=== PATIENT | female | born 1960 | race African-American/Black ===

== ENCOUNTER 2016-09-03 09:04 | Emergency (ER) | payer OTHER ==
[~2016-09-03] VITALS: Ht 154.9 cm; Wt 80.0 kg
[~2016-09-03 09:04] MED LIST: ACETTAB3 OR; AMOXICILLIN500 MG PO; AMOXICILLIN875 MG OR; ATIVAN0.5 MG OR; AUGMENTIN875 MG OR; AVELOX400 MG OR; BACTRIM DS1 TAB PO; BENADRYL 50MG C50 MG OR; BENADRYL1 CRE EX; CARVEDILOL3.125 MG PO; CEPHALEXIN500 M1 OR; CLONIDINE0.1 MG OR; COREG3.125 MG PO; DEXAMETHASON2 MG PO; DYAZIDE1 CAP OR; ENALAPR/HCTZ1 TAB PO; ENALAPRIL10 MG OR; ENALAPRIL10 MG PO; ENALAPRIL5 MG PO; FIORICET OR; FIORICET PO; HYDRALAZINE25 MG OR; K-DUR/KLOR-CON10 MEQ PO; KEFLEX500 MG PO; LASIX 40 MG TAB40 MG PO; LASIX 40 MG40 MG/TAB PO; LASIX40 MG PO; LEVAQUIN750 MG PO; LISINOPRIL20 MG PO; LISINOPRIL40 MG PO; LOPRESSOR50 MG OR; LORTAB 5 OR; LORTAB 5/3255 MG PO; LORTAB 7.5 OR; LORTAB5 PO; MAXZIDE-2537.5 MG/TA PO; MEDDOSEPAK OR; METOPROLOL50 MG OR; MICRO-K10 ME1 PO; MOTRIN IB200 MG OR; NAPROSYN500 MG OR; NO; PENICILLN VK500 MG OR; PENICILLN VK500 MG PO; PEPCID20 MG OR; PERCOCET 5/325M1 TAB OR; PERCOCET 5/325M1 TAB PO; POT CHLORIDE20 ME3 PO; PREDNISONE10 MG OR; PREDNISONE10 MG PO; PREDNISONE20 MG OR; PREDNISONE20 MG PO; PREDNISONE5 MG OR; PREMARIN0.625 MG OR; PROCRIT IM; PROZAC10 M1 OR; ROBITUSSIN AC10 ML OR; ROBITUSSIN AC10 ML PO; SEPTRA DS1 TAB OR; TRAMADOL HCL50 MG OR; TRIAM/HCTZ1 CAP PO; TRIAMT/HCTZ1 TAB PO; TYLENOL325 MG OR; ULTRAM50 MG OR; ZITHROMAX250 MG PO; [UNRECOGNIZED DRUG - OTHER]; [UNRECOGNIZED DRUG - OTHER] PO
[2016-09-03 10:50] LABS: HEMATOCRIT 35.3 % (37.0-47.0); MEAN CELL VOLUME 72.2 fL CALC (80.0-100.0); MEAN CORPUSCULAR HGB 24.5 pG CALC (26.0-32.0); NEUT# 10.96 thou/uL (2.00-7.15); RED BLOOD COUNT 4.89 mill/uL (4.20-5.60); RED CELL DISTRI WIDTH 18.6 % (11.5-15.5)
[2016-09-03 11:09] LABS: PROTHROMBIN TIME 10.7 SECONDS (9.0-12.5)
[2016-09-03 11:11] LABS: ALBUMIN 3.6 g/dL (3.2-5.0); ALKALINE PHOSPHATASE 70 u/l (38-126); ANION GAP 15 (6-22 (CALC)); BILIRUBIN, TOTAL 0.5 mg/dL (0.0-1.4); BUN 27 mg/dL (7-17); BUN/CREATININE RATIO 29 (12-20 (CALC)); CALCIUM 8.5 mg/dL (8.4-10.2); CARBON DIOXIDE 24 mmol/l (22-30); CHLORIDE 107 mmol/l (95-108); CREATININE 0.9 mg/dL (0.5-1.0); GFR > 60 ML/MIN (>=60 (CALC)); GFR FOR AFR.AMER. > 60 ML/MIN (>=60 (CALC)); GLUCOSE 89 mg/dL (65-105); POTASSIUM 3.8 mmol/l (3.5-5.1); SGOT/AST 24 u/l (14-36); SGPT/ALT 28 u/l (9-52); SODIUM 143 mmol/l (137-146); TOTAL PROTEIN 7.1 g/dL (6.3-8.2)
[2016-09-03 11:24] LABS: MYOGLOBIN 227 ng/mL (0 - 62)
[2016-09-03] MEDS ORDERED: LEVAQUIN500 MG PO (15:41)
[2016-09-03 15:56] VITALS: BP 137/66
== END 2016-09-03 16:02 | disposition home or self-care (01) | DRG 815 ==
LOC: ED 09:04 → ED-I 13:21 → ED 16:02
PROVIDERS: Emergency Medicine
DX: D47.3 Essential (hemorrhagic) thrombocythemia (principal); D69.3 Immune thrombocytopenic purpura

== ENCOUNTER 2016-10-07 18:09 | Emergency (ER) | payer OTHER ==
[~2016-10-07] VITALS: Ht 154.9 cm; Wt 82.0 kg
[~2016-10-07 18:09] MED LIST changes: +LEVAQUIN500 MG PO
[2016-10-07] MEDS ORDERED: LORTAB 10-325 M1 TAB PO (21:31)
[2016-10-07 22:00] VITALS: BP 132/86
[2016-10-07 22:12] LABS: INFLUENZA A NONE DETECTED (NONE DETECT); INFLUENZA B NONE DETECTED (NONE DETECT)
== END 2016-10-07 22:15 | disposition home or self-care (01) | DRG 556 ==
LOC: ED 18:09
PROVIDERS: Emergency Medicine
DX: M79.1 Myalgia (principal); T38.0X5A Adverse effect of glucocorticoids and synthetic analogues, initial encounter

== ENCOUNTER 2016-11-05 11:18 | Emergency (ER) | payer OTHER ==
[~2016-11-05] VITALS: Ht 154.9 cm; Wt 80.0 kg
[~2016-11-05 11:18] MED LIST changes: +LORTAB 10-325 M1 TAB PO
[2016-11-05] MEDS ORDERED: COREG3.125 MG PO (11:44)
[2016-11-05 12:04] VITALS: BP 196/102
== END 2016-11-05 12:30 | disposition home or self-care (01) | DRG 103 ==
LOC: ED 11:18
DX: R51 Headache (principal); D69.3 Immune thrombocytopenic purpura; I11.0 Hypertensive heart disease with heart failure; I50.9 Heart failure, unspecified; Z85.42 Personal history of malignant neoplasm of other parts of uterus

== ENCOUNTER 2016-12-02 07:40 | Emergency (ER) | payer OTHER ==
[~2016-12-02] VITALS: Ht 154.9 cm; Wt 82.0 kg
[2016-12-02] MEDS ORDERED: KEFLEX500 MG PO (08:22)
[2016-12-02 08:26] VITALS: BP 174/81
== END 2016-12-02 08:45 | disposition home or self-care (01) | DRG 605 ==
LOC: ED 07:40
PROC: 0HQFXZZ Repair Right Hand Skin, External Approach (ICD-10-PCS; principal; 2016-12-02)
DX: S61.210A Laceration without foreign body of right index finger without damage to nail, initial encounter (principal); D69.3 Immune thrombocytopenic purpura; I11.0 Hypertensive heart disease with heart failure; I50.9 Heart failure, unspecified; F17.210 Nicotine dependence, cigarettes, uncomplicated; W25.XXXA Contact with sharp glass, initial encounter

== ENCOUNTER 2016-12-11 19:00 | Emergency (ER) | payer OTHER ==
[~2016-12-11] VITALS: Ht 154.9 cm; Wt 81.8 kg
[2016-12-11 19:45] VITALS: BP 154/96
== END 2016-12-11 19:45 | disposition home or self-care (01) | DRG 950 ==
LOC: ED 19:00
DX: S61.210D Laceration without foreign body of right index finger without damage to nail, subsequent encounter (principal)

== ENCOUNTER 2017-02-25 10:26 | Emergency (ER) | payer OTHER ==
[~2017-02-25] VITALS: Ht 154.9 cm; Wt 85.0 kg
[2017-02-25] MEDS ORDERED: DEXAMETHASON2 MG PO (11:15)
[2017-02-25] MEDS ORDERED: K-DUR/KLOR-CON20 MEQ PO (11:17)
[2017-02-25 12:15] VITALS: BP 118/76
== END 2017-02-25 12:18 | disposition home or self-care (01) | DRG 556 ==
LOC: ED 10:26
DX: M79.641 Pain in right hand (principal); M25.441 Effusion, right hand

== ENCOUNTER 2017-05-16 12:17 | Emergency (ER) | payer OTHER ==
[~2017-05-16] VITALS: Ht 154.9 cm; Wt 80.0 kg
[~2017-05-16 12:17] MED LIST changes: +K-DUR/KLOR-CON20 MEQ PO
[2017-05-16 13:02] LABS: INFLUENZA A NONE DETECTED (NONE DETECT); INFLUENZA B NONE DETECTED (NONE DETECT)
[2017-05-16] MEDS ORDERED: LASIX 40 MG TAB40 MG PO (13:14)
[2017-05-16] MEDS ORDERED: FAMOTIDINE40 M1 PO (13:14)
[2017-05-16] MEDS ORDERED: ALPRAZOLAM2 M1 PO (13:15)
[2017-05-16] MEDS ORDERED: HYDROMORPHON8 MG PO (13:15)
[2017-05-16] MEDS ORDERED: MORPHINE SUL100 MG PO (13:16)
[2017-05-16] MEDS ORDERED: NEURONTIN300 MG PO (13:16)
[2017-05-16] MEDS ORDERED: LISINOPRIL40 MG PO (13:17)
[2017-05-16] MEDS ORDERED: KLOR-CON 1010 MEQ PO (13:17)
[2017-05-16] MEDS ORDERED: NORCO1 TA1 PO (13:31)
[2017-05-16] MEDS ORDERED: AMOXICILLIN500 MG PO (13:31)
[2017-05-16 13:39] VITALS: BP 155/74
== END 2017-05-16 13:39 | disposition home or self-care (01) | DRG 153 ==
LOC: ED 12:17
PROVIDERS: Emergency Medicine
DX: J06.9 Acute upper respiratory infection, unspecified (principal); R51 Headache; D69.3 Immune thrombocytopenic purpura; I11.0 Hypertensive heart disease with heart failure; I50.9 Heart failure, unspecified; F17.210 Nicotine dependence, cigarettes, uncomplicated; R05 Cough; R50.9 Fever, unspecified; J02.9 Acute pharyngitis, unspecified; R11.2 Nausea with vomiting, unspecified; Z85.42 Personal history of malignant neoplasm of other parts of uterus

== ENCOUNTER 2017-06-09 16:42 | Emergency (ER) | payer OTHER ==
[~2017-06-09] VITALS: Ht 154.9 cm; Wt 80.0 kg
[~2017-06-09 16:42] MED LIST changes: +ALPRAZOLAM2 M1 PO; +FAMOTIDINE40 M1 PO; +HYDROMORPHON8 MG PO; +KLOR-CON 1010 MEQ PO; +MORPHINE SUL100 MG PO; +NEURONTIN300 MG PO; +NORCO1 TA1 PO
[2017-06-09] MEDS ORDERED: LOTRISONE CREAM15 GM EX (17:47)
[2017-06-09 17:49] VITALS: BP 129/83
[2017-06-09] MEDS ORDERED: LASIX 40 MG TAB40 MG PO (17:51)
[2017-06-09] MEDS ORDERED: LISINOPRIL40 MG PO (17:51)
== END 2017-06-09 17:54 | disposition home or self-care (01) | DRG 607 ==
LOC: ED 16:42
DX: B35.4 Tinea corporis (principal)

== ENCOUNTER 2017-06-18 17:05 | Emergency (ER) | payer OTHER ==
[~2017-06-18] VITALS: Ht 154.9 cm; Wt 81.0 kg
[~2017-06-18 17:05] MED LIST changes: +LOTRISONE CREAM15 GM EX
[2017-06-18] MEDS ORDERED: PENICILLN VK500 MG PO (17:27)
[2017-06-18] MEDS ORDERED: LORTAB 5/3255 MG PO (17:27)
[2017-06-18] MEDS ORDERED: ALPRAZOLAM2 M1 PO (17:36)
[2017-06-18 17:43] VITALS: BP 177/98
== END 2017-06-18 17:43 | disposition home or self-care (01) | DRG 159 ==
LOC: ED 17:05
DX: K08.89 Other specified disorders of teeth and supporting structures (principal); S02.5XXA Fracture of tooth (traumatic), initial encounter for closed fracture

== ENCOUNTER 2017-08-02 11:22 | Emergency (ER) | payer OTHER ==
[~2017-08-02] VITALS: Ht 154.9 cm; Wt 80.0 kg
[2017-08-02 11:51] LABS: HEMOGLOBIN 13.6 g/dl (12.0-16.0); IMMATURE GRANULOCYTES 0.6 % (0.0-1.0); MEAN CELL VOLUME 73.1 fL CALC (80.0-100.0); MEAN CORPUSCULAR HGB 24.9 pG CALC (26.0-32.0); RED BLOOD COUNT 5.47 mill/uL (4.20-5.60); RED CELL DISTRI WIDTH 14.9 % (11.5-15.5)
[2017-08-02 12:12] LABS: CALCIUM 8.7 mg/dL (8.4-10.2); CREATININE 1.3 mg/dL (0.5-1.0); POTASSIUM 3.2 mmol/l (3.5-5.1)
[2017-08-02 12:15] LABS: MANUAL DIFFERENTIAL YES; PLATELET COUNT 48 thou/uL (130-400)
[2017-08-02 12:31] LABS: INFLUENZA A NONE DETECTED (NONE DETECT); INFLUENZA B NONE DETECTED (NONE DETECT)
[2017-08-02] MEDS ORDERED: ZPAK PO (13:37)
[2017-08-02 13:46] VITALS: BP 155/82
== END 2017-08-02 13:46 | disposition left against medical advice (07) | DRG 313 ==
LOC: ED 11:22
PROVIDERS: Family Medicine
DX: R07.9 Chest pain, unspecified (principal); D69.3 Immune thrombocytopenic purpura; I11.0 Hypertensive heart disease with heart failure; I50.9 Heart failure, unspecified; F17.210 Nicotine dependence, cigarettes, uncomplicated; Z85.43 Personal history of malignant neoplasm of ovary; Z91.19 Patient's noncompliance with other medical treatment and regimen

== ENCOUNTER 2017-09-28 14:41 | Emergency (ER) | payer OTHER ==
[~2017-09-28] VITALS: Ht 154.9 cm; Wt 81.0 kg
[~2017-09-28 14:41] MED LIST changes: +ZPAK PO
[2017-09-28 17:08] LABS: HEMATOCRIT 39.7 % (37.0-47.0); HEMOGLOBIN 13.5 g/dl (12.0-16.0); MEAN CELL VOLUME 72.7 fL CALC (80.0-100.0); MEAN CORPUSCULAR HGB 24.7 pG CALC (26.0-32.0); RED BLOOD COUNT 5.46 mill/uL (4.20-5.60); RED CELL DISTRI WIDTH 15.3 % (11.5-15.5)
[2017-09-28 17:10] LABS: IMMATURE GRANULOCYTES 0.9 % (0.0-1.0); NEUT# 14.73 thou/uL (2.00-7.15)
[2017-09-28 17:23] LABS: PROTHROMBIN TIME 10.7 SECONDS (9.0-12.5)
[2017-09-28 17:25] LABS: ALBUMIN 3.5 g/dL (3.2-5.0); BILIRUBIN, TOTAL 0.4 mg/dL (0.0-1.4); CREATININE 1.2 mg/dL (0.5-1.0); TOTAL PROTEIN 6.2 g/dL (6.3-8.2)
[2017-09-28 17:41] LABS: POTASSIUM 2.5 mmol/l (3.5-5.1)
[2017-09-28 18:11] VITALS: BP 147/90
[2017-09-28] MEDS ORDERED: POTASSIUM CHLO20 ME1 PO (18:16)
== END 2017-09-28 18:24 | disposition home or self-care (01) | DRG 641 ==
LOC: ED 14:41
PROVIDERS: Emergency Medicine
DX: E87.6 Hypokalemia (principal); F17.200 Nicotine dependence, unspecified, uncomplicated; I10 Essential (primary) hypertension; R53.1 Weakness; R42 Dizziness and giddiness; R51 Headache

== ENCOUNTER 2017-11-07 16:31 | Emergency (ER) | payer OTHER ==
[~2017-11-07] VITALS: Ht 154.9 cm; Wt 115.0 kg
[~2017-11-07 16:31] MED LIST changes: +POTASSIUM CHLO20 ME1 PO
[2017-11-07 17:23] LABS: HEMATOCRIT 41.5 % (37.0-47.0); HEMOGLOBIN 14.4 g/dl (12.0-16.0); MEAN CELL VOLUME 72.2 fL CALC (80.0-100.0); MEAN CORPUSCULAR HGB CONC 34.7 g/L CALC (32.0-36.0); RED BLOOD COUNT 5.75 mill/uL (4.20-5.60); RED CELL DISTRI WIDTH 15.3 % (11.5-15.5)
[2017-11-07 17:38] LABS: IMMATURE GRANULOCYTES 0.6 % (0.0-1.0); NEUT# 9.74 thou/uL (2.00-7.15)
[2017-11-07 17:53] LABS: PROTHROMBIN TIME 10.7 SECONDS (9.0-12.5)
[2017-11-07 18:05] LABS: ALBUMIN 3.7 g/dL (3.2-5.0); BILIRUBIN, TOTAL 0.5 mg/dL (0.0-1.4); CREATININE 1.2 mg/dL (0.5-1.0); POTASSIUM 2.6 mmol/l (3.5-5.1)
[2017-11-07 20:00] VITALS: BP 151/78
== END 2017-11-07 20:00 | disposition short-term general hospital (02) | DRG 813 ==
LOC: ED 16:31
PROVIDERS: Family Medicine
DX: D69.3 Immune thrombocytopenic purpura (principal); I11.0 Hypertensive heart disease with heart failure; I50.9 Heart failure, unspecified; Z85.43 Personal history of malignant neoplasm of ovary; F17.210 Nicotine dependence, cigarettes, uncomplicated
CPT/HCPCS: J1566

== ENCOUNTER 2017-12-01 16:17 | Emergency (ER) | payer OTHER ==
[~2017-12-01] VITALS: Ht 154.9 cm; Wt 79.0 kg
[2017-12-01] MEDS ORDERED: TRAMADOL HYDROC50 MG PO (17:48)
[2017-12-01] MEDS ORDERED: AMOXICILLIN875 MG PO (17:52)
[2017-12-01 18:00] VITALS: BP 168/90
== END 2017-12-01 18:00 | disposition home or self-care (01) | DRG 159 ==
LOC: ED 16:17
DX: K08.89 Other specified disorders of teeth and supporting structures (principal)

== ENCOUNTER 2017-12-10 06:04 | Observation (INO) | payer OTHER ==
[~2017-12-10] VITALS: Ht 162.6 cm; Wt 89.7 kg
[~2017-12-10 06:04] MED LIST changes: +AMOXICILLIN875 MG PO; +TRAMADOL HYDROC50 MG PO
--- NOTE | 2017-12-10 06:17 | NUR ---
PT. TO ROOM 9 VIA W/C IN STABLE CONDITION.
--- NOTE | 2017-12-10 06:26 | NUR ---
PT CONTINUES TO HAVE PROBLEMS WITH PLATELET COUNTS. STATES THAT SHE HAS HAD SEVERAL BLOOD TRANSFUSIONS OVER THAT PAST FEW YEARS.
--- NOTE | 2017-12-10 06:36 | NUR ---
COFFEE & SANDWICH ORDERED FOR PT
--- NOTE | 2017-12-10 06:53 | NUR ---
REPORT GIVEN TO RAHUL RUIZ.
--- NOTE | 2017-12-10 06:55 | NUR ---
BEDSIDE REPORT RECIEVED FROM SARA TALAVERA. CARE ASSUMED.
[2017-12-10 06:57] LABS: HEMATOCRIT 39.1 % (37.0-47.0); HEMOGLOBIN 13.4 g/dl (12.0-16.0); IMMATURE GRANULOCYTES 1.2 % (0.0-1.0); MEAN CELL VOLUME 72.9 fL CALC (80.0-100.0); MEAN CORPUSCULAR HGB CONC 34.3 g/L CALC (32.0-36.0); NEUT# 15.74 thou/uL (2.00-7.15); RED BLOOD COUNT 5.36 mill/uL (4.20-5.60); RED CELL DISTRI WIDTH 16.7 % (11.5-15.5)
--- NOTE | 2017-12-10 07:00 | NUR ---
RESTING ON STRETCHER ALERT AND ORIENTED X3. REFUSED TO CHANGE INTO GOWN AT THIS TIME. STATES "I'M TOO COLD RIGHT NOW." WARM BLANKET PROVIDED. WILL CONTINUE TO MONITOR. CALL LIGHT WITHIN REACH.
[2017-12-10 07:07] LABS: ALBUMIN 3.6 g/dL (3.2-5.0); BILIRUBIN, TOTAL 0.3 mg/dL (0.0-1.4); CREATININE 1.2 mg/dL (0.5-1.0)
[2017-12-10 07:12] LABS: PROTHROMBIN TIME 10.9 SECONDS (9.0-12.5)
--- NOTE | 2017-12-10 07:43 | NUR ---
PATIENT INFORMED OF URINE SAMPLE NEEDED. STATES "I DON'T HAVE TO PEE." REFUSED TO CHANGE INTO GOWN. LUNG SOUNDS CLEAR. MD INFORMED, WILL CONTINUE TO MONITOR.
--- NOTE | 2017-12-10 07:55 | NUR ---
AMBULATES TO BATHROOM WITH STEADY GAIT. URINE SAMPLE OBTAINED. CHANGED INTO GOWN. UPDATED ON PLAN OF CARE. VERBAL UNDERSTANDING.
[2017-12-10 08:10] LABS: URINE BILIRUBIN - DIPSTICK NEGATIVE (NEGATIVE); URINE BLOOD DIPSTICK NEGATIVE (NEGATIVE); URINE COLOR YELLOW; URINE GLUCOSE - DIPSTICK NEGATIVE (NEGATIVE); URINE KETONE NEGATIVE (NEGATIVE); URINE LEUK ESTERASE NEGATIVE (NEGATIVE); URINE NITRITE - DIPSTICK NEGATIVE (Negative); URINE PH 5.5 (4.5-8.0); URINE PROTEIN - DIPSTICK NEGATIVE (NEG-TRACE); URINE SPECIFIC GRAVITY 1.015; URINE UROBILINOGEN - DIPSTICK 0.2 E.U./dL (0.2)
--- NOTE | 2017-12-10 08:10 | NUR ---
LAB AT BEDSIDE TO COLLECT SECOND SET OF BLOOD CULTURES.
[2017-12-10 08:24] LABS: URINE CLARITY CLEAR
--- NOTE | 2017-12-10 08:59 | NUR ---
PATIENT SET UP WITH MEAL TRAY.
--- NOTE | 2017-12-10 09:30 | NUR ---
PATIENT REQUESTING PO FLUIDS. PROVIDED. WILL CONTINUE TO MONITOR,
--- NOTE | 2017-12-10 10:07 | NUR ---
AT BEDSIDE TO DISCUSS RESULTS.
[2017-12-10] MEDS ORDERED: DEXAMETHASON2 MG PO (10:11)
[2017-12-10] MEDS ORDERED: CARVEDILOL3.125 MG PO (10:12)
--- NOTE | 2017-12-10 10:28 | NUR ---
AT BEDSIDE TO SEE PATIENT.
--- NOTE | 2017-12-10 10:52 | NUR ---
VERIFIED WITH DR. DUGGAN 2,000 ML BOLUS.
--- NOTE | 2017-12-10 11:14 | NUR ---
REPORT GIVEN TO SARA PARKER.
--- NOTE | 2017-12-10 11:28 | NUR ---
PATIENT TRANSPORTED TO [facility] VIA STRETCHER, BEDSIDE REPORT GIVEN TO SARA PARKER. FLUIDS TO CONTINUE INFUSING ON [facility]. CARE RELINQUISHED.
[2017-12-10 11:54] VITALS: BP 154/92
[2017-12-10 15:43] VITALS: BP 182/94
[2017-12-10 19:00] VITALS: BP 119/70
--- NOTE | 2017-12-10 19:10 | NUR ---
LAB INTO ROOM TO DRAW LACTIC ACID
--- NOTE | 2017-12-10 19:15 | NUR ---
PT WITH COMPLAINTS OF CHEST PAIN AND INDIGESTION. EKG ORDERED. RT NOTIFIED
--- NOTE | 2017-12-10 19:30 | NUR ---
RT IN THE ROOM TO COMPLETED EKG ORDERED.
--- NOTE | 2017-12-10 19:37 | NUR ---
DR WHITEHEAD NOTIFIED OF CHEST PAIN AND EKG.
--- NOTE | 2017-12-10 19:45 | NUR ---
PT RESTING IN BED. VISITORS IN ROOM. PT IS ALERT AND ORIENTED X3. PERRLA. RESP ARE EVEN AND UNLABORED. NO DISTRESS NOTED. LUNGS ARE CLEAR. HR REGULAR. PULSES PALPABLE THROUGHOUT. NO EDEMA NOTED. BS ACTIVE. #20 RIGHT HAND WITH NS @100CC/HR INFUSING. NO REDNESS OR EDEMA NOTED AT SITE. CALL LGT IN REACH. WILL CONTINUE TO MONITOR
--- NOTE | 2017-12-10 19:55 | NUR ---
DR HARRIS PHONED. ORDERS RECEIVED TO DRAW TROPONIN. LAB NOTIFIED.
--- NOTE | 2017-12-10 20:10 | NUR ---
LAB IN ROOM TO DRAW TROPONIN.
--- NOTE | 2017-12-10 20:23 | NUR ---
RECEIVED ORDERS FROM DR WHITEHEAD. BOLUS GIVEN PER MD ORDERS.
--- NOTE | 2017-12-11 | NUR ---
PT RESTING IN BED WITH EYES CLOSED. RESP ARE EVEN AND UNLABORED. NO DISTRESS NOTED. CALL LIGHT IN REACH. WILL CONTINUE TO MONITOR.
--- NOTE | 2017-12-11 04:04 | NUR ---
PT RESTING IN BED WITH EYES CLOSED. RESP ARE EVEN AND UNLABORED. NO DISTRESS NOTED. CALL LIGHT IN REACH. WILL CONTINUE TO MONITOR
[2017-12-11 06:07] LABS: HEMATOCRIT 35.2 % (37.0-47.0); IMMATURE GRANULOCYTES 3.4 % (0.0-1.0); MEAN CELL VOLUME 74.4 fL CALC (80.0-100.0); MEAN CORPUSCULAR HGB 25.4 pG CALC (26.0-32.0); MEAN CORPUSCULAR HGB CONC 34.1 g/L CALC (32.0-36.0); NEUT# 12.68 thou/uL (2.00-7.15); RED BLOOD COUNT 4.73 mill/uL (4.20-5.60); RED CELL DISTRI WIDTH 16.5 % (11.5-15.5)
[2017-12-11 06:13] LABS: BUN 26 mg/dL (7-17); BUN/CREATININE RATIO 28 (12-20 (CALC)); CARBON DIOXIDE 24 mmol/l (22-30); CHLORIDE 109 mmol/l (95-108); GFR 57 ML/MIN (>=60 (CALC)); GFR FOR AFR.AMER. > 60 ML/MIN (>=60 (CALC)); SODIUM 141 mmol/l (137-146)
[2017-12-11 06:28] LABS: ANION GAP 12 (6-22 (CALC)); MAGNESIUM 2.7 mg/dL (1.6-2.3); POTASSIUM 4.1 mmol/l (3.5-5.1)
--- NOTE | 2017-12-11 07:15 | NUR ---
REPORT RECEIVED FROM SARA MARRERO;INTRODUCED SELF TO PT AND POC DISCUSSED;RESPIRATIONS EVEN AND UNLABORED ON RA;IV SITE PATENT TO RIGHT HAND;PT DENIES ANY CURRENT PAIN,FRESH COFFEE PROVIDED PER REQUEST;PT ENCOURAGED TO CALL FOR ASSISTANCE IF NEEDED;CALL LIGHT IN REACH;WILL CONTINUE TO MONITOR
[2017-12-11 09:00] VITALS: BP 136/64
--- NOTE | 2017-12-11 09:00 | NUR ---
PT RESTING IN SEMI FOWLERS POSITION;A&O X3;VS OBTAINED AND ASSESSMENT COMPLETED;RESPIRATIONS EVEN AND UNLABORED ON RA,CLEAR/DIMINISHED LUNG SOUNDS NOTED;ABDOMEN DISTENDED/SOFT ON PALPATION AND ACTIVE IN ALL 4 QUADRANTS;STRONG PEDAL PULSES;#20G TO RIGHT HAND INFUSING NS @ 100ML/HR,SITE APPEARS HEALTHY; SKIN INTACT;WHILE ADMINISTERING MORNING MEDICATIONS PT REPORTS THAT SHE TOOK HER OWN LASIX THIS MORNING BECAUSE SHE FELT LIKE SHE COULDN'T BREATH;MORNING LASIX HELD AND PT ENDUCATED ON THE RISKS OF TAKING HER OWN MEDICATION WHILE IN THE HOSPITAL;IT SHOULD ALSO BE NOTED THAT PT REFUSES TO SEND HER MEDICATIONS HOME OR TO PHARMACY AT THIS TIME;FRESH WATER PROVIDED;FALL PRECAUTIONS IN PLACE WITH CALL LIGHT IN REACH;WILL CONTINUE TO MONITOR
[2017-12-11 09:03] VITALS: BP 136/64
[2017-12-11] MEDS ORDERED: AUGMENTIN875TAB PO (09:59)
--- NOTE | 2017-12-11 12:20 | NUR ---
ALL D/C INFORMATION GIVEN AND PRESCRIPTIONS PROVIDED;QUESTIONS ANSWERED;IV SITE REMOVED WITH CATHETER INTACT;WC TO BE PROVIDED FOR D/C
--- NOTE | 2017-12-11 12:35 | NUR ---
Discharge instructions given. Patient verbalizes understanding of same. Discharged in stable condition via Wheelchair to Home with *Other. All belongings sent with pt.
== END 2017-12-11 12:30 | disposition home or self-care (01) | DRG 815 ==
LOC: ED 06:04 → ED-I 10:40 → ED 11:00 → MS2 11:01
PROVIDERS: Emergency Medicine; Nurse Practitioner Family; ADMIT Internal Medicine; ATTEND Internal Medicine
DX: D72.829 Elevated white blood cell count, unspecified (principal); E87.2 Acidosis; D69.3 Immune thrombocytopenic purpura; I50.9 Heart failure, unspecified; I11.0 Hypertensive heart disease with heart failure; I42.9 Cardiomyopathy, unspecified; E87.6 Hypokalemia; F17.210 Nicotine dependence, cigarettes, uncomplicated; Z85.43 Personal history of malignant neoplasm of ovary
CPT/HCPCS: G0378

== ENCOUNTER 2018-01-04 18:43 | Emergency (ER) | payer OTHER ==
[~2018-01-04] VITALS: Ht 154.9 cm; Wt 81.8 kg
[~2018-01-04 18:43] MED LIST changes: +AUGMENTIN875TAB PO
[2018-01-04] MEDS ORDERED: DEXAMETHASON2 MG PO (19:14)
[2018-01-04 19:27] LABS: HEMATOCRIT 37.1 % (37.0-47.0); HEMOGLOBIN 12.5 g/dl (12.0-16.0); IMMATURE GRANULOCYTES 0.8 % (0.0-1.0); MEAN CELL VOLUME 74.8 fL CALC (80.0-100.0); MEAN CORPUSCULAR HGB 25.2 pG CALC (26.0-32.0); MEAN CORPUSCULAR HGB CONC 33.7 g/L CALC (32.0-36.0); NEUT# 13.83 thou/uL (2.00-7.15); RED BLOOD COUNT 4.96 mill/uL (4.20-5.60)
[2018-01-04 19:43] LABS: ALBUMIN 3.6 g/dL (3.2-5.0); ALKALINE PHOSPHATASE 69 u/l (38-126); ANION GAP 11 (6-22 (CALC)); BILIRUBIN, TOTAL 0.3 mg/dL (0.0-1.4); BUN 27 mg/dL (7-17); BUN/CREATININE RATIO 24 (12-20 (CALC)); CARBON DIOXIDE 26 mmol/l (22-30); CHLORIDE 108 mmol/l (95-108); CREATININE 1.1 mg/dL (0.5-1.0); GFR 51 ML/MIN (>=60 (CALC)); GFR FOR AFR.AMER. > 60 ML/MIN (>=60 (CALC)); POTASSIUM 3.4 mmol/l (3.5-5.1); SGOT/AST 13 u/l (14-36); SGPT/ALT 23 u/l (9-52); SODIUM 141 mmol/l (137-146); TOTAL PROTEIN 6.7 g/dL (6.3-8.2)
[2018-01-04 19:55] LABS: MYOGLOBIN 24 ng/mL (0 - 62)
[2018-01-04 20:31] VITALS: BP 150/70
== END 2018-01-04 20:32 | disposition home or self-care (01) | DRG 813 ==
LOC: ED 18:43
PROVIDERS: Emergency Medicine
DX: D69.3 Immune thrombocytopenic purpura (principal); I11.0 Hypertensive heart disease with heart failure; I50.9 Heart failure, unspecified; F17.210 Nicotine dependence, cigarettes, uncomplicated; Z85.43 Personal history of malignant neoplasm of ovary; R06.02 Shortness of breath

== ENCOUNTER 2018-04-07 16:59 | Emergency (ER) | payer OTHER ==
[~2018-04-07] VITALS: Ht 154.9 cm; Wt 83.0 kg
[2018-04-07 17:39] LABS: HEMATOCRIT 41.8 % (37.0-47.0); HEMOGLOBIN 14.3 g/dl (12.0-16.0); IMMATURE GRANULOCYTES 1.6 % (0.0-5.0); MEAN CELL VOLUME 76.3 fL CALC (80.0-100.0); MEAN CORPUSCULAR HGB 26.1 pG CALC (26.0-32.0); MEAN CORPUSCULAR HGB CONC 34.2 g/L CALC (32.0-36.0); NEUT# 15.57 thou/uL (2.00-7.15); RED BLOOD COUNT 5.48 mill/uL (4.20-5.60); RED CELL DISTRI WIDTH 18.3 % (11.5-15.5)
[2018-04-07 17:50] LABS: ALBUMIN 3.7 g/dL (3.2-5.0); BILIRUBIN, TOTAL 0.5 mg/dL (0.0-1.4); CREATININE 1.3 mg/dL (0.5-1.0); POTASSIUM 3.8 mmol/l (3.5-5.1); TOTAL PROTEIN 6.5 g/dL (6.3-8.2)
[2018-04-07 17:55] LABS: ACT PARTIAL THROMBO TIME 22.6 SECONDS (20.0-32.5); INTERNATIONAL NORMALIZED RATIO 0.9 RATIO (0.7-1.3)
[2018-04-07] MEDS ORDERED: FIORICET PO (20:08)
[2018-04-07 20:10] VITALS: BP 138/78
== END 2018-04-07 20:15 | disposition left against medical advice (07) ==
LOC: ED 16:59
PROVIDERS: Family Medicine
DX: R51 Headache (principal); D69.3 Immune thrombocytopenic purpura; I11.0 Hypertensive heart disease with heart failure; I50.9 Heart failure, unspecified; F17.210 Nicotine dependence, cigarettes, uncomplicated; Z85.43 Personal history of malignant neoplasm of ovary; Z79.52 Long term (current) use of systemic steroids; R20.0 Anesthesia of skin; R06.02 Shortness of breath

== ENCOUNTER 2018-04-20 17:15 | Emergency (ER) | payer OTHER ==
[~2018-04-20] VITALS: Ht 154.9 cm; Wt 85.9 kg
[2018-04-20 18:18] LABS: HEMATOCRIT 43.6 % (37.0-47.0); HEMOGLOBIN 14.5 g/dl (12.0-16.0); IMMATURE GRANULOCYTES 0.9 % (0.0-5.0); MEAN CELL VOLUME 76.9 fL CALC (80.0-100.0); MEAN CORPUSCULAR HGB 25.6 pG CALC (26.0-32.0); MEAN CORPUSCULAR HGB CONC 33.3 g/L CALC (32.0-36.0); NEUT# 8.5 thou/uL (2.00-7.15); RED BLOOD COUNT 5.67 mill/uL (4.20-5.60); RED CELL DISTRI WIDTH 19.9 % (11.5-15.5)
[2018-04-20 19:00] LABS: ANION GAP 12 (6-22 (CALC)); BUN 7 mg/dL (7-17); BUN/CREATININE RATIO 8 (12-20 (CALC)); CARBON DIOXIDE 26 mmol/l (22-30); CHLORIDE 107 mmol/l (95-108); CREATININE 0.9 mg/dL (0.5-1.0); GFR > 60 ML/MIN (>=60 (CALC)); GFR FOR AFR.AMER. > 60 ML/MIN (>=60 (CALC)); POTASSIUM 3.3 mmol/l (3.5-5.1); SODIUM 141 mmol/l (137-146)
[2018-04-20] MEDS ORDERED: AMOXICILLIN500 MG PO (20:35)
[2018-04-20 21:48] VITALS: BP 160/80
== END 2018-04-20 21:47 | disposition home or self-care (01) ==
LOC: ED 17:15
PROVIDERS: Family Medicine
DX: K04.7 Periapical abscess without sinus (principal); R51 Headache; R50.9 Fever, unspecified; F17.210 Nicotine dependence, cigarettes, uncomplicated; D69.3 Immune thrombocytopenic purpura; Z85.43 Personal history of malignant neoplasm of ovary
CPT/HCPCS: Q9967

== ENCOUNTER 2018-05-06 18:04 | Emergency (ER) | payer OTHER ==
[~2018-05-06] VITALS: Ht 154.9 cm; Wt 81.8 kg
[2018-05-06 19:27] LABS: ACT PARTIAL THROMBO TIME 29.9 SECONDS (20.0-32.5); PROTHROMBIN TIME 10.8 SECONDS (9.0-12.5)
[2018-05-06 19:28] LABS: ALBUMIN 4.1 g/dL (3.2-5.0); ANION GAP 15 (6-22 (CALC)); BILIRUBIN, TOTAL 0.7 mg/dL (0.0-1.4); BUN 13 mg/dL (7-17); BUN/CREATININE RATIO 13 (12-20 (CALC)); CARBON DIOXIDE 27 mmol/l (22-30); CHLORIDE 105 mmol/l (95-108); GFR 57 ML/MIN (>=60 (CALC)); GFR FOR AFR.AMER. > 60 ML/MIN (>=60 (CALC)); POTASSIUM 3.4 mmol/l (3.5-5.1); SGOT/AST 21 u/l (14-36); SODIUM 144 mmol/l (137-146); TOTAL PROTEIN 7.5 g/dL (6.3-8.2)
[2018-05-06 19:38] LABS: ALKALINE PHOSPHATASE 98 u/l (38-126)
[2018-05-06 19:41] LABS: MYOGLOBIN 133 ng/mL (0 - 62)
[2018-05-06 19:51] LABS: HEMATOCRIT 48.1 % (37.0-47.0); HEMOGLOBIN 16.2 g/dl (12.0-16.0); MEAN CELL VOLUME 74.7 fL CALC (80.0-100.0); MEAN CORPUSCULAR HGB 25.2 pG CALC (26.0-32.0); MEAN CORPUSCULAR HGB CONC 33.7 g/L CALC (32.0-36.0); RED BLOOD COUNT 6.44 mill/uL (4.20-5.60); RED CELL DISTRI WIDTH 17.6 % (11.5-15.5)
[2018-05-06 20:09] LABS: IMMATURE GRANULOCYTES 0.6 % (0.0-5.0); NEUT# 7.79 thou/uL (2.00-7.15)
[2018-05-06 22:00] VITALS: BP 145/87
== END 2018-05-06 22:06 | disposition short-term general hospital (02) ==
LOC: ED 18:04 → ED-I 19:45 → ED 22:06
PROVIDERS: Emergency Medicine
DX: D69.6 Thrombocytopenia, unspecified (principal); I11.0 Hypertensive heart disease with heart failure; I50.9 Heart failure, unspecified; F17.200 Nicotine dependence, unspecified, uncomplicated; R60.0 Localized edema; R94.31 Abnormal electrocardiogram [ECG] [EKG]

== ENCOUNTER 2018-06-28 11:22 | Emergency (ER) | payer OTHER ==
[~2018-06-28] VITALS: Ht 154.9 cm; Wt 82.0 kg
[2018-06-28] MEDS ORDERED: ZESTRIL40 MG PO (11:47)
[2018-06-28] MEDS ORDERED: PENICILLN VK500 MG PO (12:17)
[2018-06-28 12:25] VITALS: BP 194/105
== END 2018-06-28 12:29 | disposition home or self-care (01) ==
LOC: ED 11:22
DX: K04.7 Periapical abscess without sinus (principal); F17.200 Nicotine dependence, unspecified, uncomplicated; I11.0 Hypertensive heart disease with heart failure; I50.9 Heart failure, unspecified; M84.48XA Pathological fracture, other site, initial encounter for fracture

== ENCOUNTER 2018-08-26 13:08 | Emergency (ER) | payer OTHER ==
[~2018-08-26] VITALS: Ht 154.9 cm; Wt 90.0 kg
[~2018-08-26 13:08] MED LIST changes: +ZESTRIL40 MG PO
[2018-08-26 13:48] LABS: HEMATOCRIT 42.6 % (37.0-47.0); HEMOGLOBIN 14.4 g/dl (12.0-16.0); MEAN CELL VOLUME 73.7 fL CALC (80.0-100.0); MEAN CORPUSCULAR HGB 24.9 pG CALC (26.0-32.0); MEAN CORPUSCULAR HGB CONC 33.8 g/L CALC (32.0-36.0); RED BLOOD COUNT 5.78 mill/uL (4.20-5.60); RED CELL DISTRI WIDTH 17.4 % (11.5-15.5)
[2018-08-26 14:05] LABS: IMMATURE GRANULOCYTES 0.7 % (0.0-5.0); NEUT# 7.53 thou/uL (2.00-7.15)
[2018-08-26 14:25] LABS: CREATININE 1.3 mg/dL (0.5-1.0)
[2018-08-26 14:27] LABS: POTASSIUM 3.5 mmol/l (3.5-5.1)
[2018-08-26] MEDS ORDERED: LASIX 40 MG40 MG/TAB PO (14:33)
[2018-08-26] MEDS ORDERED: XANAX1 MG PO (14:33)
[2018-08-26] MEDS ORDERED: NPLATE250 MCG SC (14:38)
[2018-08-26 17:18] VITALS: BP 133/73
== END 2018-08-26 17:19 ==
LOC: ED 13:08
PROVIDERS: Family Medicine
DX: D69.3 Immune thrombocytopenic purpura (principal); R06.02 Shortness of breath; R53.83 Other fatigue; R00.0 Tachycardia, unspecified

== ENCOUNTER 2018-09-21 08:44 | Observation (INO) | payer OTHER ==
[~2018-09-21] VITALS: Ht 154.9 cm; Wt 84.4 kg
[~2018-09-21 08:44] MED LIST changes: +NPLATE250 MCG SC; +XANAX1 MG PO
[2018-09-21] MEDS ORDERED: POTASSIUM CHLO10 ME4 PO (10:17)
[2018-09-21] MEDS ORDERED: DEXAMETHASON6 MG PO (10:18)
[2018-09-21] MEDS ORDERED: CARVEDILOL6.25 MG PO (10:18)
[2018-09-21] MEDS ORDERED: FAMOTIDINE40 M1 PO (10:19)
[2018-09-21] MEDS ORDERED: ALPRAZOLAM2 M1 PO (10:19)
[2018-09-21 11:29] LABS: HEMATOCRIT 38.3 % (37.0-47.0); HEMOGLOBIN 12.8 g/dl (12.0-16.0); IMMATURE GRANULOCYTES 1.6 % (0.0-5.0); MEAN CELL VOLUME 78.2 fL CALC (80.0-100.0); MEAN CORPUSCULAR HGB 26.1 pG CALC (26.0-32.0); MEAN CORPUSCULAR HGB CONC 33.4 g/L CALC (32.0-36.0); NEUT# 11.27 thou/uL (2.00-7.15); RED BLOOD COUNT 4.9 mill/uL (4.20-5.60); RED CELL DISTRI WIDTH 19.7 % (11.5-15.5)
[2018-09-21 11:43] LABS: ALKALINE PHOSPHATASE 56 u/l (38-126); BILIRUBIN, TOTAL 0.4 mg/dL (0.0-1.4); BUN 33 mg/dL (7-17); BUN/CREATININE RATIO 29 (12-20 (CALC)); CARBON DIOXIDE 24 mmol/l (22-30); CHLORIDE 107 mmol/l (95-108); CREATININE 1.1 mg/dL (0.5-1.0); GFR 51 ML/MIN (>=60 (CALC)); GFR FOR AFR.AMER. > 60 ML/MIN (>=60 (CALC)); SGOT/AST 11 u/l (14-36); SODIUM 139 mmol/l (137-146)
[2018-09-21 11:44] LABS: ALBUMIN 2.7 g/dL (3.2-5.0); ANION GAP 11 (6-22 (CALC)); POTASSIUM 2.6 mmol/l (3.5-5.1); TOTAL PROTEIN 5.2 g/dL (6.3-8.2)
[2018-09-21 13:23] VITALS: BP 139/86
[2018-09-21 15:27] VITALS: BP 119/64
[2018-09-21 19:55] VITALS: BP 118/71
[2018-09-21 23:45] VITALS: BP 137/71
[2018-09-22 04:33] VITALS: BP 138/70
[2018-09-22 05:01] LABS: HEMATOCRIT 35.5 % (37.0-47.0); HEMOGLOBIN 11.7 g/dl (12.0-16.0); IMMATURE GRANULOCYTES 1.9 % (0.0-5.0); MEAN CELL VOLUME 78.9 fL CALC (80.0-100.0); NEUT# 10.48 thou/uL (2.00-7.15); RED BLOOD COUNT 4.5 mill/uL (4.20-5.60); RED CELL DISTRI WIDTH 19.5 % (11.5-15.5)
[2018-09-22 05:44] LABS: ALBUMIN 2.5 g/dL (3.2-5.0); ALKALINE PHOSPHATASE 62 u/l (38-126); AMYLASE 110 u/l (30-110); ANION GAP 9 (6-22 (CALC)); BILIRUBIN, TOTAL 0.2 mg/dL (0.0-1.4); BUN 22 mg/dL (7-17); BUN/CREATININE RATIO 28 (12-20 (CALC)); CARBON DIOXIDE 23 mmol/l (22-30); CHLORIDE 109 mmol/l (95-108); CREATININE 0.8 mg/dL (0.5-1.0); GFR > 60 ML/MIN (>=60 (CALC)); GFR FOR AFR.AMER. > 60 ML/MIN (>=60 (CALC)); LIPASE 122 u/l (23-300); MAGNESIUM 2.5 mg/dL (1.6-2.3); SGOT/AST 10 u/l (14-36); SODIUM 137 mmol/l (137-146); TOTAL PROTEIN 4.8 g/dL (6.3-8.2)
[2018-09-22 05:48] LABS: POTASSIUM 3.7 mmol/l (3.5-5.1)
[2018-09-22 08:00] VITALS: BP 148/99
[2018-09-22 11:57] VITALS: BP 157/87
== END 2018-09-22 14:57 | disposition home or self-care (01) ==
LOC: ED 08:44 → ED-I 12:26 → ED 12:37 → MS2 12:38
PROVIDERS: ADMIT Internal Medicine Nephrology; ATTEND Internal Medicine Nephrology
DX: E87.6 Hypokalemia (principal); D69.3 Immune thrombocytopenic purpura; I11.0 Hypertensive heart disease with heart failure; I50.22 Chronic systolic (congestive) heart failure; M17.0 Bilateral primary osteoarthritis of knee; F32.9 Major depressive disorder, single episode, unspecified; F41.1 Generalized anxiety disorder; K21.9 Gastro-esophageal reflux disease without esophagitis; I42.9 Cardiomyopathy, unspecified; E66.9 Obesity, unspecified; F17.210 Nicotine dependence, cigarettes, uncomplicated; T40.2X6A Underdosing of other opioids, initial encounter; Z91.128 Patient's intentional underdosing of medication regimen for other reason; Z79.891 Long term (current) use of opiate analgesic
CPT/HCPCS: G0378; J1650; J3475

== ENCOUNTER 2018-10-27 12:19 | Emergency (ER) | payer OTHER ==
[~2018-10-27] VITALS: Ht 154.9 cm; Wt 80.0 kg
[~2018-10-27 12:19] MED LIST changes: +CARVEDILOL6.25 MG PO; +DEXAMETHASON6 MG PO; +POTASSIUM CHLO10 ME4 PO
[2018-10-27 13:29] LABS: HEMATOCRIT 37.9 % (37.0-47.0); HEMOGLOBIN 12.5 g/dl (12.0-16.0); MEAN CELL VOLUME 76.7 fL CALC (80.0-100.0); MEAN CORPUSCULAR HGB 25.3 pG CALC (26.0-32.0); RED BLOOD COUNT 4.94 mill/uL (4.20-5.60); RED CELL DISTRI WIDTH 17.2 % (11.5-15.5)
[2018-10-27 13:48] LABS: IMMATURE GRANULOCYTES 0.7 % (0.0-5.0); NEUT# 6.46 thou/uL (2.00-7.15)
[2018-10-27 13:52] LABS: ANION GAP 12 (6-22 (CALC)); BUN 5 mg/dL (7-17); BUN/CREATININE RATIO 5 (12-20 (CALC)); CARBON DIOXIDE 24 mmol/l (22-30); CHLORIDE 109 mmol/l (95-108); CREATININE 1.1 mg/dL (0.5-1.0); GFR 51 ML/MIN (>=60 (CALC)); GFR FOR AFR.AMER. > 60 ML/MIN (>=60 (CALC)); POTASSIUM 3.8 mmol/l (3.5-5.1); SODIUM 142 mmol/l (137-146)
[2018-10-27 14:26] VITALS: BP 160/88
== END 2018-10-27 14:26 | disposition home or self-care (01) ==
LOC: ED 12:19
PROVIDERS: Family Medicine
DX: R53.83 Other fatigue (principal); R53.1 Weakness; I10 Essential (primary) hypertension; R60.0 Localized edema; F17.200 Nicotine dependence, unspecified, uncomplicated

== ENCOUNTER 2018-11-04 06:50 | Emergency (ER) | payer OTHER ==
[~2018-11-04] VITALS: Ht 154.9 cm; Wt 80.9 kg
[2018-11-04] MEDS ORDERED: MORPHINE SUL100 MG PO (07:23)
[2018-11-04 08:02] LABS: HEMATOCRIT 37.6 % (37.0-47.0); HEMOGLOBIN 12.6 g/dl (12.0-16.0); MEAN CELL VOLUME 74.5 fL CALC (80.0-100.0); MEAN CORPUSCULAR HGB CONC 33.5 g/L CALC (32.0-36.0); RED BLOOD COUNT 5.05 mill/uL (4.20-5.60); RED CELL DISTRI WIDTH 16.3 % (11.5-15.5)
[2018-11-04 08:10] LABS: IMMATURE GRANULOCYTES 2.1 % (0.0-5.0); PLATELET COUNT 2 thou/uL (130-400)
[2018-11-04 08:11] LABS: MANUAL DIFFERENTIAL YES
[2018-11-04 09:07] LABS: BILIRUBIN, TOTAL 0.5 mg/dL (0.0-1.4); CREATININE 1.2 mg/dL (0.5-1.0); POTASSIUM 3.9 mmol/l (3.5-5.1)
[2018-11-04 09:09] LABS: ALBUMIN 3.7 g/dL (3.2-5.0); TOTAL PROTEIN 6.9 g/dL (6.3-8.2)
[2018-11-04 09:18] VITALS: BP 142/76
== END 2018-11-04 09:10 | disposition short-term general hospital (02) ==
LOC: ED 06:50
PROVIDERS: Emergency Medicine
DX: M31.1 Thrombotic microangiopathy (principal); I10 Essential (primary) hypertension; I50.9 Heart failure, unspecified; F17.200 Nicotine dependence, unspecified, uncomplicated

== ENCOUNTER 2019-01-16 11:11 | Emergency (ER) | payer OTHER ==
[~2019-01-16] VITALS: Ht 154.9 cm; Wt 90.0 kg
[2019-01-16 12:06] LABS: ALBUMIN 3.5 g/dL (3.2-5.0); BILIRUBIN, TOTAL 0.4 mg/dL (0.0-1.4); CREATININE 1.2 mg/dL (0.5-1.0); POTASSIUM 3.5 mmol/l (3.5-5.1); TOTAL PROTEIN 6.3 g/dL (6.3-8.2)
[2019-01-16 12:15] LABS: HEMATOCRIT 35.1 % (37.0-47.0); HEMOGLOBIN 11.8 g/dl (12.0-16.0); IMMATURE GRANULOCYTES 3.5 % (0.0-5.0); MEAN CELL VOLUME 75.3 fL CALC (80.0-100.0); MEAN CORPUSCULAR HGB 25.3 pG CALC (26.0-32.0); MEAN CORPUSCULAR HGB CONC 33.6 g/L CALC (32.0-36.0); NEUT# 21.4 thou/uL (2.00-7.15); RED BLOOD COUNT 4.66 mill/uL (4.20-5.60); RED CELL DISTRI WIDTH 18.9 % (11.5-15.5)
[2019-01-16 13:55] VITALS: BP 123/79
== END 2019-01-16 13:52 | disposition left against medical advice (07) ==
LOC: ED 11:11
DX: G89.29 Other chronic pain (principal); M25.561 Pain in right knee; M25.571 Pain in right ankle and joints of right foot; M25.521 Pain in right elbow; I11.0 Hypertensive heart disease with heart failure; I50.9 Heart failure, unspecified; F17.200 Nicotine dependence, unspecified, uncomplicated; Z91.19 Patient's noncompliance with other medical treatment and regimen

== ENCOUNTER 2019-02-02 15:07 | Emergency (ER) | payer OTHER ==
[~2019-02-02] VITALS: Ht 154.9 cm; Wt 80.9 kg
[2019-02-02 16:11] LABS: IMMATURE GRANULOCYTES 0.6 % (0.0-5.0); MEAN CORPUSCULAR HGB 25.1 pG CALC (26.0-32.0); MEAN CORPUSCULAR HGB CONC 31.8 g/L CALC (32.0-36.0); NEUT# 19.47 thou/uL (2.00-7.15); RED BLOOD COUNT 3.38 mill/uL (4.20-5.60); RED CELL DISTRI WIDTH 19.9 % (11.5-15.5)
[2019-02-02 16:15] LABS: HEMATOCRIT 26.7 % (37.0-47.0); HEMOGLOBIN 8.5 g/dl (12.0-16.0)
[2019-02-02 16:26] LABS: ALBUMIN 3.7 g/dL (3.2-5.0); ALKALINE PHOSPHATASE 97 u/l (38-126); ANION GAP 13 (6-22 (CALC)); BILIRUBIN, TOTAL 0.5 mg/dL (0.0-1.4); BUN 22 mg/dL (7-17); BUN/CREATININE RATIO 14 (12-20 (CALC)); CHLORIDE 105 mmol/l (95-108); CREATININE 1.5 mg/dL (0.5-1.0); GFR 35 ML/MIN (>=60 (CALC)); GFR FOR AFR.AMER. 43 ML/MIN (>=60 (CALC)); LIPASE 25 u/l (23-300); POTASSIUM 3.7 mmol/l (3.5-5.1); SGOT/AST 13 u/l (14-36); SODIUM 142 mmol/l (137-146); TOTAL PROTEIN 6.9 g/dL (6.3-8.2)
[2019-02-02 16:27] LABS: CARBON DIOXIDE 28 mmol/l (22-30)
[2019-02-02 18:28] LABS: URINE BILIRUBIN - DIPSTICK NEGATIVE (NEGATIVE); URINE BLOOD DIPSTICK SMALL (NEGATIVE); URINE COLOR YELLOW; URINE GLUCOSE - DIPSTICK NEGATIVE (NEGATIVE); URINE KETONE NEGATIVE (NEGATIVE); URINE LEUK ESTERASE NEGATIVE (NEGATIVE); URINE NITRITE - DIPSTICK NEGATIVE (Negative); URINE PROTEIN - DIPSTICK TRACE mg/dL (NEG-TRACE); URINE SPECIFIC GRAVITY 1.025; URINE UROBILINOGEN - DIPSTICK 0.2 E.U./dL (0.2)
[2019-02-02 18:40] LABS: URINE SQUAMOUS EPITHELIAL CELL MODERATE EPI/hpf (0-FEW)
[2019-02-02 19:01] VITALS: BP 110/61
== END 2019-02-02 19:01 | disposition short-term general hospital (02) ==
LOC: ED 15:07
PROVIDERS: Emergency Medicine
DX: K92.2 Gastrointestinal hemorrhage, unspecified (principal); R10.84 Generalized abdominal pain; R50.9 Fever, unspecified; R07.9 Chest pain, unspecified; R42 Dizziness and giddiness; I10 Essential (primary) hypertension; F17.210 Nicotine dependence, cigarettes, uncomplicated
CPT/HCPCS: G0328; J0131; S0164

== ENCOUNTER 2019-02-23 21:28 | Emergency (ER) | payer OTHER ==
[~2019-02-23] VITALS: Ht 154.9 cm; Wt 90.0 kg
[2019-02-23 23:02] LABS: MEAN CELL VOLUME 77.1 fL CALC (80.0-100.0); MEAN CORPUSCULAR HGB 25.7 pG CALC (26.0-32.0); MEAN CORPUSCULAR HGB CONC 33.3 g/L CALC (32.0-36.0); RED BLOOD COUNT 4.36 mill/uL (4.20-5.60); RED CELL DISTRI WIDTH 17.6 % (11.5-15.5)
[2019-02-23 23:04] LABS: IMMATURE GRANULOCYTES 0.8 % (0.0-5.0); NEUT# 5.85 thou/uL (2.00-7.15)
[2019-02-23 23:05] LABS: HEMATOCRIT 33.6 % (37.0-47.0); HEMOGLOBIN 11.2 g/dl (12.0-16.0)
[2019-02-23 23:08] LABS: BILIRUBIN, TOTAL 0.5 mg/dL (0.0-1.4); CREATININE 1.2 mg/dL (0.5-1.0); TOTAL PROTEIN 6.1 g/dL (6.3-8.2)
[2019-02-23 23:14] LABS: ALBUMIN 2.9 g/dL (3.2-5.0); POTASSIUM 2.9 mmol/l (3.5-5.1)
[2019-02-24 01:10] LABS: URINE BILIRUBIN - DIPSTICK NEGATIVE (NEGATIVE); URINE BLOOD DIPSTICK TRACE-LYSED (NEGATIVE); URINE COLOR YELLOW; URINE GLUCOSE - DIPSTICK NEGATIVE (NEGATIVE); URINE KETONE NEGATIVE (NEGATIVE); URINE LEUK ESTERASE NEGATIVE (NEGATIVE); URINE NITRITE - DIPSTICK NEGATIVE (Negative); URINE PROTEIN - DIPSTICK TRACE mg/dL (NEG-TRACE); URINE SPECIFIC GRAVITY >=1.030; URINE UROBILINOGEN - DIPSTICK 0.2 E.U./dL (0.2)
[2019-02-24 01:11] LABS: BARBITURATES NEGATIVE (NEGATIVE); COCAINE POSITIVE (NEGATIVE); METHADONE NEGATIVE (NEGATIVE); TETRAHYDROCANNABIONOL NEGATIVE (NEGATIVE); TRICYLIC ANTIDEPRESSANTS NEGATIVE (NEGATIVE)
[2019-02-24 01:14] LABS: OXCYCODONE NEGATIVE (NEGATIVE)
[2019-02-24 02:00] VITALS: BP 97/61
== END 2019-02-24 02:06 | disposition short-term general hospital (02) ==
LOC: ED 21:28
PROVIDERS: Emergency Medicine
DX: D69.3 Immune thrombocytopenic purpura (principal); K57.32 Diverticulitis of large intestine without perforation or abscess without bleeding; R16.0 Hepatomegaly, not elsewhere classified; H11.33 Conjunctival hemorrhage, bilateral; I11.0 Hypertensive heart disease with heart failure; I50.9 Heart failure, unspecified; F17.210 Nicotine dependence, cigarettes, uncomplicated

== ENCOUNTER 2019-03-12 18:53 | Observation (INO) | payer OTHER ==
[~2019-03-12] VITALS: Ht 154.9 cm; Wt 75.0 kg
[2019-03-12 19:59] LABS: URINE BILIRUBIN - DIPSTICK SMALL (NEGATIVE); URINE BLOOD DIPSTICK NEGATIVE (NEGATIVE); URINE COLOR YELLOW; URINE GLUCOSE - DIPSTICK NEGATIVE (NEGATIVE); URINE KETONE TRACE mg/dL (NEGATIVE); URINE LEUK ESTERASE NEGATIVE (NEGATIVE); URINE NITRITE - DIPSTICK NEGATIVE (Negative); URINE PROTEIN - DIPSTICK 100 mg/dL (NEG-TRACE); URINE SPECIFIC GRAVITY 1.015
[2019-03-12 20:00] LABS: HEMATOCRIT 34.2 % (37.0-47.0); HEMOGLOBIN 11.3 g/dl (12.0-16.0); IMMATURE GRANULOCYTES 0.7 % (0.0-5.0); MEAN CELL VOLUME 78.1 fL CALC (80.0-100.0); MEAN CORPUSCULAR HGB 25.8 pG CALC (26.0-32.0); NEUT# 12.07 thou/uL (2.00-7.15); RED BLOOD COUNT 4.38 mill/uL (4.20-5.60); RED CELL DISTRI WIDTH 18.7 % (11.5-15.5)
[2019-03-12 20:13] LABS: URINE SQUAMOUS EPITHELIAL CELL FEW EPI/hpf (0-FEW)
[2019-03-12 20:15] LABS: ALBUMIN 3.8 g/dL (3.2-5.0); ALKALINE PHOSPHATASE 100 u/l (38-126); AMYLASE 169 u/l (30-110); ANION GAP 12 (6-22 (CALC)); BILIRUBIN, TOTAL 0.7 mg/dL (0.0-1.4); BUN 7 mg/dL (7-17); BUN/CREATININE RATIO 8 (12-20 (CALC)); CARBON DIOXIDE 28 mmol/l (22-30); CHLORIDE 105 mmol/l (95-108); GFR 57 ML/MIN (>=60 (CALC)); GFR FOR AFR.AMER. > 60 ML/MIN (>=60 (CALC)); LIPASE 135 u/l (23-300); SGOT/AST 23 u/l (14-36); SODIUM 142 mmol/l (137-146); TOTAL PROTEIN 7.8 g/dL (6.3-8.2)
[2019-03-12 20:16] LABS: POTASSIUM 2.7 mmol/l (3.5-5.1)
[2019-03-13] VITALS (13 sets, daily range): BP systolic 142–189; BP diastolic 78–102
[2019-03-13 05:43] LABS: HEMATOCRIT 33.1 % (37.0-47.0); HEMOGLOBIN 10.4 g/dl (12.0-16.0); MEAN CELL VOLUME 80.1 fL CALC (80.0-100.0); MEAN CORPUSCULAR HGB 25.2 pG CALC (26.0-32.0); MEAN CORPUSCULAR HGB CONC 31.4 g/L CALC (32.0-36.0); RED BLOOD COUNT 4.13 mill/uL (4.20-5.60); RED CELL DISTRI WIDTH 18.9 % (11.5-15.5)
[2019-03-13 05:57] LABS: ALBUMIN 3.2 g/dL (3.2-5.0); ALKALINE PHOSPHATASE 88 u/l (38-126); ANION GAP 8 (6-22 (CALC)); BILIRUBIN, TOTAL 0.6 mg/dL (0.0-1.4); BUN 7 mg/dL (7-17); BUN/CREATININE RATIO 7 (12-20 (CALC)); CARBON DIOXIDE 29 mmol/l (22-30); CHLORIDE 109 mmol/l (95-108); GFR 57 ML/MIN (>=60 (CALC)); GFR FOR AFR.AMER. > 60 ML/MIN (>=60 (CALC)); POTASSIUM 3.2 mmol/l (3.5-5.1); SGOT/AST 20 u/l (14-36); SODIUM 143 mmol/l (137-146); TOTAL PROTEIN 6.6 g/dL (6.3-8.2)
[2019-03-13 06:15] LABS: IMMATURE GRANULOCYTES 0.5 % (0.0-5.0); NEUT# 7.62 thou/uL (2.00-7.15)
[2019-03-13] MEDS ORDERED: NIFEDICAL XL60 MG PO (09:58)
[2019-03-13 15:00] LABS: HEMATOCRIT 30.9 % (37.0-47.0); IMMATURE GRANULOCYTES 2.9 % (0.0-5.0); MEAN CELL VOLUME 80.5 fL CALC (80.0-100.0); MEAN CORPUSCULAR HGB CONC 32.4 g/L CALC (32.0-36.0); NEUT# 20.13 thou/uL (2.00-7.15); RED BLOOD COUNT 3.84 mill/uL (4.20-5.60); RED CELL DISTRI WIDTH 18.7 % (11.5-15.5)
[2019-03-13 15:36] LABS: BILIRUBIN, TOTAL 0.7 mg/dL (0.0-1.4)
[2019-03-13 18:50] LABS: URINE BILIRUBIN - DIPSTICK NEGATIVE (NEGATIVE); URINE BLOOD DIPSTICK NEGATIVE (NEGATIVE); URINE CLARITY CLEAR; URINE COLOR YELLOW; URINE GLUCOSE - DIPSTICK NEGATIVE (NEGATIVE); URINE KETONE NEGATIVE (NEGATIVE); URINE LEUK ESTERASE NEGATIVE (Negative); URINE NITRITE - DIPSTICK NEGATIVE (Negative); URINE PH 6.5 (4.5-8.0); URINE PROTEIN - DIPSTICK 100 mg/dL (NEG-TRACE); URINE SPECIFIC GRAVITY 1.015
[2019-03-13 18:52] LABS: URINE SQUAMOUS EPITHELIAL CELL MODERATE EPI/hpf (0-FEW)
[2019-03-14] VITALS (22 sets, daily range): BP systolic 125–197; BP diastolic 71–106
[2019-03-14 05:25] LABS: HEMATOCRIT 26.1 % (37.0-47.0); HEMOGLOBIN 8.4 g/dl (12.0-16.0); MEAN CELL VOLUME 80.6 fL CALC (80.0-100.0); MEAN CORPUSCULAR HGB 25.9 pG CALC (26.0-32.0); MEAN CORPUSCULAR HGB CONC 32.2 g/L CALC (32.0-36.0); RED BLOOD COUNT 3.24 mill/uL (4.20-5.60); RED CELL DISTRI WIDTH 18.3 % (11.5-15.5)
[2019-03-14 05:38] LABS: BUN 9 mg/dL (7-17); BUN/CREATININE RATIO 10 (12-20 (CALC)); CHLORIDE 111 mmol/l (95-108); CREATININE 0.9 mg/dL (0.5-1.0); GFR > 60 ML/MIN (>=60 (CALC)); GFR FOR AFR.AMER. > 60 ML/MIN (>=60 (CALC)); POTASSIUM 3.5 mmol/l (3.5-5.1); SODIUM 140 mmol/l (137-146)
[2019-03-14 06:03] LABS: IMMATURE GRANULOCYTES 0.9 % (0.0-5.0); NEUT# 7.79 thou/uL (2.00-7.15)
[2019-03-14 06:13] LABS: ANION GAP 12 (6-22 (CALC)); CARBON DIOXIDE 21 mmol/l (22-30)
[2019-03-14 09:50] LABS: HEMATOCRIT 28.8 % (37.0-47.0); HEMOGLOBIN 9.4 g/dl (12.0-16.0); MEAN CELL VOLUME 79.3 fL CALC (80.0-100.0); MEAN CORPUSCULAR HGB 25.9 pG CALC (26.0-32.0); MEAN CORPUSCULAR HGB CONC 32.6 g/L CALC (32.0-36.0); RED BLOOD COUNT 3.63 mill/uL (4.20-5.60); RED CELL DISTRI WIDTH 18.3 % (11.5-15.5)
[2019-03-15] VITALS (21 sets, daily range): BP systolic 139–187; BP diastolic 62–101
[2019-03-15 05:58] LABS: HEMATOCRIT 26.9 % (37.0-47.0); HEMOGLOBIN 8.6 g/dl (12.0-16.0); MEAN CELL VOLUME 80.1 fL CALC (80.0-100.0); MEAN CORPUSCULAR HGB 25.6 pG CALC (26.0-32.0); RED BLOOD COUNT 3.36 mill/uL (4.20-5.60); RED CELL DISTRI WIDTH 18.1 % (11.5-15.5)
[2019-03-15 06:16] LABS: ANION GAP 10 (6-22 (CALC)); BUN 12 mg/dL (7-17); BUN/CREATININE RATIO 13 (12-20 (CALC)); CARBON DIOXIDE 20 mmol/l (22-30); CHLORIDE 113 mmol/l (95-108); CREATININE 0.9 mg/dL (0.5-1.0); GFR > 60 ML/MIN (>=60 (CALC)); GFR FOR AFR.AMER. > 60 ML/MIN (>=60 (CALC)); POTASSIUM 3.9 mmol/l (3.5-5.1); SODIUM 139 mmol/l (137-146)
== END 2019-03-15 14:30 | disposition home or self-care (01) ==
LOC: ED 18:53 → ED-I 22:48 → ED 23:31 → ICU 23:32
PROVIDERS: Emergency Medicine; Internal Medicine; ADMIT Internal Medicine; ATTEND Internal Medicine
DX: K57.32 Diverticulitis of large intestine without perforation or abscess without bleeding (principal); D69.3 Immune thrombocytopenic purpura; I13.0 Hypertensive heart and chronic kidney disease with heart failure and stage 1 through stage 4 chronic kidney disease, or unspecified chronic kidney disease; N18.2 Chronic kidney disease, stage 2 (mild); I50.22 Chronic systolic (congestive) heart failure; E87.6 Hypokalemia; I42.9 Cardiomyopathy, unspecified; F17.200 Nicotine dependence, unspecified, uncomplicated; T80.89XA Other complications following infusion, transfusion and therapeutic injection, initial encounter; R07.9 Chest pain, unspecified; Y84.8 Other medical procedures as the cause of abnormal reaction of the patient, or of later complication, without mention of misadventure at the time of the procedure
CPT/HCPCS: J0131; J1561; J3475; P9034; Q9967

== ENCOUNTER 2019-06-19 16:21 | Inpatient (IN) | payer OTHER ==
[~2019-06-19] VITALS: Ht 162.6 cm; Wt 74.0 kg
[~2019-06-19 16:21] MED LIST changes: +LASIX 20 MG TAB20 MG PO; +NIFEDICAL XL60 MG PO
--- NOTE | 2019-06-19 16:47 | NUR ---
PT TO ROOM VIA WC.
--- NOTE | 2019-06-19 17:37 | NUR ---
PT RESTING ON STRETCHER; NO S/S OF DISTRESS NOTED; MONITORING DEVICES IN PLACEL VSS; PT DENIES ANY NEEDS AT THIS TIME; WILL CONTINUE TO MONITOR
[2019-06-19 17:50] LABS: HEMATOCRIT 31.9 % (37.0-47.0); MEAN CORPUSCULAR HGB 24.1 pG CALC (26.0-32.0); MEAN CORPUSCULAR HGB CONC 33.2 g/L CALC (32.0-36.0); RED BLOOD COUNT 4.4 mill/uL (4.20-5.60); RED CELL DISTRI WIDTH 19.8 % (11.5-15.5)
[2019-06-19 17:53] LABS: HEMOGLOBIN 10.6 g/dl (12.0-16.0); MEAN CELL VOLUME 72.5 fL CALC (80.0-100.0)
[2019-06-19 17:54] LABS: IMMATURE GRANULOCYTES 0.9 % (0.0-5.0); NEUT# 12.44 thou/uL (2.00-7.15)
--- NOTE | 2019-06-19 18:04 | NUR ---
DR LINDA AT BEDSIDE TO DISCUSS POC AND FINDINGS
--- NOTE | 2019-06-19 18:50 | NUR ---
REPORT TO SARA STAPLETON
[2019-06-19 18:55] LABS: CREATININE 3.3 mg/dL (0.5-1.0)
--- NOTE | 2019-06-19 19:17 | NUR ---
RETURNED TO ROOM...SOB. ASSISTED BACK TO BED AND O2 REPLACED. BLANKETS APPLIED AND HEAT TURNED UP IN ROOM.
--- NOTE | 2019-06-19 19:48 | NUR ---
ATTEMPTED TO CALL REPORT TO ICU X2.
--- NOTE | 2019-06-19 20:00 | NUR ---
ATTEMPTED TO CALL REPORT...WILL CALL BACK.
--- NOTE | 2019-06-19 20:00 | NUR ---
PT GIVEN OJ. AWAITING ADMISSION.
--- NOTE | 2019-06-19 20:26 | NUR ---
CALLED [facility]...TREVA ON PHONE WITH [facility].
--- NOTE | 2019-06-19 20:45 | NUR ---
TREVA RETURNED CALL FOR REPORT.
--- NOTE | 2019-06-19 21:20 | NUR ---
TO FLOOR VIA W/C TO ICU. PT ON O2 @ 2 LPM NC. SEVERAL BAGS OF BELONGINGS WITH PT. PT A/O NAD. VSS.
[2019-06-19 21:35] VITALS: BP 174/104
--- NOTE | 2019-06-19 21:35 | NUR ---
PT. PRESENTS FROM ER VIA WHEELCHAIR AT THIS TIME. AMBULATORY WITH STEADY GAIT FROM WHEELCHAIR TO BEDSIDE SCALE AND THEN TO ICU STRETCHER. STATES SHE NEEDS TO HAVE A BM ON ARRIVAL TO UNIT. BSC PROVIDED AND PT. THEN REPORTED THAT SHE NO LONGER NEEDED TO HAVE A BM. BP ELEVATED AT 170/100 AT THIS TIME. AWAKE, ALERT, ORIENTED X 3. DENIES COMPLAINTS OF SOB AT THIS TIME. PT. STATES THE DECADRON THAT SHE WAS GIVEN IN THE ER HAS HELPED HER SHORTNESS OF BREATH. REPORT ONLY MILD PAIN AT THIS TIME. DISTIL PULSES INTACT. LUNGS CTA. AFEBRILE AT 97.1 ON ARRIVAL. HR SINUS TACH WHEN PLACED ON LINEN ROOM CUSTODIAN IN THE LOW 100'S. PT. STATES SHE HAS NOT TAKEN HER DECADRON IN A COUPLE OF WEEKS BECAUSE OF THE SWELLING.
[2019-06-19 21:45] VITALS: BP 174/102
--- NOTE | 2019-06-19 21:45 | NUR ---
PT. PROVIDED WITH BLANKETS AND HER MCDONALDS SANDWICHES HEATED UP PER HER REQUEST. PROVIDED WITH MULTIPLE JUICES PER HER REQUEST. UPDATED ON PLAN OF CARE AND MEDICATIONS DUE FOR TONIGHT. PT. REPORTS HER PAIN LEVEL IS 6/10 AT THIS TIME.
[2019-06-19 22:00] VITALS: BP 174/102
--- NOTE | 2019-06-19 22:35 | NUR ---
PT. PROVIDED WITH ADDITIONAL JUICES AND BLANKET AT THIS TIME PER HER REQUEST. REMAINS STABLE ON THE MONITOR. BP REMAIN ELEVATED, BUT IMPROVED AT 170/94. IV IMMUNOGLOBULIN STARTED AT THIS TIME. WILL CONTINUE TO CLOSELY MONITOR.
--- NOTE | 2019-06-19 22:45 | NUR ---
PT. NOW REQUESTING LASHONDA CRACKERS AND PEANUT BUTTER. REMAINS IN NO DISCERNABLE DISTRESS. IMMUNOGLOBULIN CONTINUES TO INFUSE ORDERED.
[2019-06-19 23:00] VITALS: BP 163/104
--- NOTE | 2019-06-19 23:00 | NUR ---
PT. REMAINS ASYMPTOMATIC WITH INFUSING IMMUNOGLOBULIN. INCREASED RATE PER PHARMACY PROTOCOL. LIGHTS DIMMED AND PATIENT REPOSITIONED FOR COMFORT. CALL LIGHT REMAINS WITHIN REACH. WILL CONTINUE TO CLOSELY MONITOR.
[2019-06-20] VITALS (16 sets, daily range): BP systolic 71–195; BP diastolic 50–108
--- NOTE | 2019-06-20 00:16 | NUR ---
IV IGG RATE INCREASED AT THIS TIME. PT. CONTINUES IN STABLE CONDITION. BP REMAINS ELEVATED. WILL MEDICATE ORDERED.
--- NOTE | 2019-06-20 00:35 | NUR ---
PT. RESTING IN BED WITH EYES CLOSED IN NO DISTRESS. CALL LIGHT REMAINS WITHIN REACH. WILL CONTINUE TO MONITOR.
--- NOTE | 2019-06-20 01:02 | NUR ---
PT. ASSISTED TO BSC. MEDICATED FOR ELEVATED BP AT THIS TIME. PT. MOANING AND GROANING STATING SHE IS SOB, BUT PATIENT APPEARS IN NO DISTRESS WITH SPO2 IN THE 99% RANGE ON HER NORMAL AMOUNT OF O2. CONTINUES TO REQUEST MULTIPLE SNACKS AND BEVERAGES CONSTANTLY. WILL CONTINUE TO CLOSELY MONITOR.
--- NOTE | 2019-06-20 03:00 | NUR ---
PT. RESTING IN BED IN NO DISTRESS. WARE. DENIES COMPLAINTS OF PAIN OR NEED AT THIS TIME. EYE CLOSED WITH EVEN AND UNLABORED RESPIRATIONS. CALL LIGHT REMAINS WITHIN REACH. WILL CONTINUE TO CLOSELY MONITOR.
--- NOTE | 2019-06-20 04:36 | NUR ---
PT. UPDATED ON PLAN OF CARE FOR THE AM. BP/HR STABLE, IMPROVED. RESPS REMAIN EVEN AND UNLABORED. CONTINUES TO REQUEST SNACKS AND DRINKS AT THIS TIME. CALL LIGHT REMAINS WITHIN REACH. WILL CONTINUE TO CLOSELY MONITOR.
--- NOTE | 2019-06-20 05:35 | NUR ---
LAB AT BEDSIDE AT THIS TIME TO ELIZABETH PT. PT. REMAINS EASILY AROUSABLE TO LIGHT VERBAL STIMULI. CALL LIGHT REMAINS WITHIN REACH. WILL CONTINUE TO CLOSELY MONITOR.
[2019-06-20 06:51] LABS: CREATININE 2.4 mg/dL (0.5-1.0)
[2019-06-20 06:57] LABS: HEMOGLOBIN 10.2 g/dl (12.0-16.0); MEAN CELL VOLUME 71.4 fL CALC (80.0-100.0); MEAN CORPUSCULAR HGB 23.5 pG CALC (26.0-32.0); MEAN CORPUSCULAR HGB CONC 32.9 g/L CALC (32.0-36.0); RED BLOOD COUNT 4.34 mill/uL (4.20-5.60); RED CELL DISTRI WIDTH 20.3 % (11.5-15.5)
[2019-06-20 07:06] LABS: POTASSIUM 4.9 mmol/l (3.5-5.1)
--- NOTE | 2019-06-20 07:23 | NUR ---
pt awake in bed; no apparent distress noted; pt offers no complaints; assessment completed at this time; pt alert and oriented; denies pain at current; no n/v noted; resp even and unlabored; lungs clear; skin color wnl; o2 per nc at 2l; hr reg; strong pulses; no edema noted to lower extremities; sr on monitor; abd soft with bs present; no bm noted per development writer; pt admits to voiding without complication; bsc; #20 flushed and patent to rh; no redness or edema noted at site; generalized bruising noted; face very edematous; pt admits to not taking decadron d/t swelling; fall precautions explained in great detail; pt verbalizes she will not get up alone; pt aware plt count of 1; plan of care/ meds explained; call light within reach; will continue to monitor
[2019-06-20 07:24] LABS: IMMATURE GRANULOCYTES 2.9 % (0.0-5.0); NEUT# 8.21 thou/uL (2.00-7.15)
--- NOTE | 2019-06-20 07:33 | NUR ---
Dr Wen informed of plt count of 1
--- NOTE | 2019-06-20 07:55 | NUR ---
Dr Wen present at bedside to assess pt and discuss plan of care
--- NOTE | 2019-06-20 08:12 | NUR ---
pt awake in bed; offers no complaints; iv intact; no distress noted; will continue to monitor
--- NOTE | 2019-06-20 10:27 | NUR ---
awake in bed; offers no complaints; no apparent distress noted; iv intact; sr on monitor; call light within reach; will continue to monitor
--- NOTE | 2019-06-20 12:20 | NUR ---
awake in bed; no apparent distress noted; sr on monitor; bp elevated; hydralazine to be administered; #20 to rh noted dislodged; #22 started to lw x1 attempt; flushed and patent; meds infusing without complication; call light within reach; will continue to monitor
--- NOTE | 2019-06-20 14:01 | NUR ---
resting with eyes closed; no apparent distress noted; ra; sr on monitor; iv intact; call light within reach; will continue to monitor
--- NOTE | 2019-06-20 16:13 | NUR ---
awake in bed; offers no complaints; iv intact; sr on monitor; o2 per nc; pt continues to remove o2 intermittently; call light within reach; will continue to monitor
--- NOTE | 2019-06-20 18:04 | NUR ---
awake in bed; freq moaning out loud noted; pt denies needs/ discomfort when staff present; pt states "I wake up like that"; sr on monitor; iv intact; o2 per nc; call light within reach;
--- NOTE | 2019-06-20 18:45 | NUR ---
REPORT FROM Arlyn REEVES RN. ASSUMED PT. CARE.
--- NOTE | 2019-06-20 19:35 | NUR ---
PT. FOUND SITTING UP IN BED, VERY DROWSY. AROUSABLE TO LIGHT TOUCH/VERBAL STIMULI. ORIENTED X 3. PT. AWAKENS AND BEGINS ITCHING. PT. WITH SLOW, PROLONGED ESPIRATORY PHASE BREATHING PATTERN. COARSE AND WHEEZING BREATH SOUNDS THROUGHOUT. CARDIAC LEADS AND BP CUFF REPLACED AT THIS TIME. NASAL CANNULA PLACED BACK IN POSITION. PT. WARE. ABLE TO REPOSITION HERSELF IN BED. IV IS SALINE LOCKED. BOWEL SOUNDS ACTIVE. DISTIL PULSES INTACT. CALL LIGHT WITHIN REACH. NO LOWER EXT EDEMA NOTED. DUE TO BREATH SOUNDS, PHYSICIAN WAS NOTIFIED. A STAT PORTABLE CHEST X-RAY AND DUONEB WAS ORDERED. WILL CONTINUE TO CLOSELY MONITOR.
--- NOTE | 2019-06-20 21:05 | NUR ---
PT. REMAINS DROWSY, BUT AROUSABLE TO LIGHT VERBAL STIMULI. CONTINUES WITH PROLONGED EXPIRATORY PHASE UPON RESPIRATION. WARE. DENIES COMPLAINTS OF PAIN AT THIS TIME. HER BP/HR REMAIN STABLE. HER COREG WAS HELD DUE TO LOW BP/HR. HR IN THE 60'S BP 100 SYSTOLIC. WILL CONTINUE TO CLOSELY MONITOR.
--- NOTE | 2019-06-20 22:05 | NUR ---
NO REACTIONS NOTED TO INFUSING IMMUNOGLOBULIN, INCREASED TO 92 ML/HR AT THIS TIME. WILL CONTINUE TO TITRATE DIRECTED. PT. REMAINS DROWSY AND WITH ITCHING. NEW AREAS OF PETECHIAL RASH NOTED TO CHEST AND ARMS WHERE PT. CONTINUE TO SCRATCH HERSELF. WILL MEDICATE PER PHYSICIAN ORDERS. CALL LIGHT REMAINS WITHIN REACH. WILL CONTINUE TO MONITOR.
--- NOTE | 2019-06-20 23:40 | NUR ---
PT. AWAKE, ALERT AT THIS TIME. APPEARS HIGHLY ANXIOUS. SITTING AT THE SIDE OF THE BED. STATES SHE "FEELS HOT" PROVIDED WITH FAN. EVEN WITH FAN, PT HIGHLY ANXIOUS. WILL MEDICATE ORDERED.
[2019-06-21] VITALS (22 sets, daily range): BP systolic 99–129; BP diastolic 53–77
--- NOTE | 2019-06-21 01:05 | NUR ---
PT. ASSISTED BACK INTO BED AT THIS TIME. PT. MUCH LESS ANXIOUS AT THIS TIME NODDING OFF. PT. CONTINUES TO DENY PAIN OR NEED AT THIS TIME. REMAINS WITH COARSE BREATH SOUNDS. WILL CONTINUE TO CLOSELY MONITOR.
--- NOTE | 2019-06-21 03:00 | NUR ---
PT. REPOSITIONED IN BED FOR COMFORT. RESPS REMAIN SLOW WITH PROLONGED EXPIRATORY PHASE. PT. DENIES COMPLAINTS OF PAIN OR NEED. WILL CONTINUE TO CLOSELY MONITOR.
--- NOTE | 2019-06-21 04:15 | NUR ---
BP/HR REMAIN STABLE. CALL LIGHT REMAINS WITHIN REACH. VOICES NO COMPLAINTS OR CONCERNS AT THIS TIME. WILL CONTINUE TO CLOSELY MONITOR.
--- NOTE | 2019-06-21 05:30 | NUR ---
LAB AT BEDSIDE TO DRAW PATIENT. PT. FOUND SLUMPED FORWARD, SHE HAS DARK RED/BROWN BLOOD COMING FROM HER NOSE AND MOUTH. PT. CLEANSED. CONFUSED. PT. DISORIENTED. PT. NOT ANSWERING QUESTIONS. MAE. WONG. EXTENSIVE BRUISING NOTED TO RT. SIDE.
--- NOTE | 2019-06-21 06:10 | NUR ---
RT AT BEDSIDE TO PERFORM ABG.
--- NOTE | 2019-06-21 06:20 | NUR ---
PT. TAKEN TO CT SCAN AT THIS TIME.
[2019-06-21 06:49] LABS: HEMATOCRIT 30.2 % (37.0-47.0); HEMOGLOBIN 9.9 g/dl (12.0-16.0); MEAN CELL VOLUME 72.8 fL CALC (80.0-100.0); MEAN CORPUSCULAR HGB 23.9 pG CALC (26.0-32.0); MEAN CORPUSCULAR HGB CONC 32.8 g/L CALC (32.0-36.0); RED BLOOD COUNT 4.15 mill/uL (4.20-5.60); RED CELL DISTRI WIDTH 20.4 % (11.5-15.5)
--- NOTE | 2019-06-21 06:50 | NUR ---
CALLED Ricarda SPOKE TO SALMA AT TRANSFER CENTER
[2019-06-21 06:55] LABS: CREATININE 3.6 mg/dL (0.5-1.0); POTASSIUM 5.7 mmol/l (3.5-5.1)
--- NOTE | 2019-06-21 07:00 | NUR ---
report received from Francisco Rojas RN; care assumed
--- NOTE | 2019-06-21 07:05 | NUR ---
pt received back from CT Scan; awake but lethargic; assessment completed at this time; pt alert to person; speech clear but hesitant; very lethargic/ falling sleep while speaking and during assessment; no s/sx of pain; no n/v noted; resp shallow; lungs coarse, wheezing, rhonchi throughout; skin color wnl; o2 per nc at 6L per RT; lift truck mechanic moist cough/ rattle noted; hr reg; strong pulses; facial edema noted; sr on monitor; abd soft with bs present; no bm noted per marketing copywriter; no urine to inspect at this time; #22 flushed and patent to lw; unable to obtained central line d/t low platelet count per MD; generalized bruising/ petechiae noted throughout chest from scratching; lg bruising noted to abd and right lat torso; plan of care explained; bed alarm active for pt safety; call light within reach; will continue to monitor
--- NOTE | 2019-06-21 07:15 | NUR ---
daughter Lillian Welch called per staff; consent to transfer obtained per 2 staff
--- NOTE | 2019-06-21 07:15 | NUR ---
Dr Wen present at bedside to assess pt and discuss plan of care/ transfer
--- NOTE | 2019-06-21 07:16 | NUR ---
pt bladder scanned per MD request; 193cc urine resulted; Dr Wen at bedside; orders received to place chinchilla catheter;
--- NOTE | 2019-06-21 07:45 | NUR ---
16Fr chinchilla catheter placed x1 attempt per Roel Germain RN using sterile technique; immed return of approx 100cc cloudy yellow urine; cath strap applied;
--- NOTE | 2019-06-21 08:00 | NUR ---
AWILDA Alarcon called per keno writer/runner; awaiting hospitalist and pest control specialist acceptance; ICU beds currently not available; will continue to monitor
--- NOTE | 2019-06-21 08:01 | NUR ---
Jose Kruse called in regards to transfer; no answer; left to return call (Jose called due to bed status at [facility])
--- NOTE | 2019-06-21 08:15 | NUR ---
deep suctioning performed per RT Willis; blood tinged secretions noted; o2 per nc at 6L; staff at bedside; will continue to monitor
--- NOTE | 2019-06-21 08:16 | NUR ---
lethargic; easily arousable to verbal stimuli; daughter present at bedside; iv intact; sr on monitor; o2 per nc; RT at bedside for deep suctioning; suctioned for frothy blood tinged sputum; chinchilla to gravity; call light within reach; will continue to monitor
--- NOTE | 2019-06-21 08:57 | NUR ---
AWILDA Alarcon called per manual writer in regards transfer update; awaiting hospitalist acceptance; bed will be available once physicians have accepted pt; will continue to monitor
--- NOTE | 2019-06-21 09:23 | NUR ---
pt awake and very anxious; resp labored/ shallow; pt noted pulling at medical equipment; Dr Wen present at bedside; orders received for restraints; NPA placed to right nare per RT; deep suctioned for blood tinged secretions
--- NOTE | 2019-06-21 09:50 | NUR ---
Dr Wen called per senior copywriter; orders received to administer platelet infusion lowly d/t previous reaction;
--- NOTE | 2019-06-21 09:53 | NUR ---
daughter Lillian Welch called per junior copywriter; update provided; will continue to monitor
--- NOTE | 2019-06-21 10:00 | NUR ---
daughter Lillian Welch called per principal technical writer; consent obtained to transfuse platelets
--- NOTE | 2019-06-21 10:15 | NUR ---
RECEIVED CALL FROM KIMBERLY AT [facility] WITH BED AND ACCEPTING MD.
--- NOTE | 2019-06-21 10:23 | NUR ---
platelets verified at bedside per protocol; 1st unit initiated to infuse slowly as per MD request; pattern chart writer remains at bedside to monitor for reactions; will continue to monitor
--- NOTE | 2019-06-21 10:28 | NUR ---
[facility] CALLED TO [facility] FOR TRANSFER.
--- NOTE | 2019-06-21 10:32 | NUR ---
daughter Harley Yuri called per typewriter operator automatic; informed of transfer and ETA for [facility]
--- NOTE | 2019-06-21 10:55 | NUR ---
[facility] present at bedside; report provided;
--- NOTE | 2019-06-21 11:00 | NUR ---
report called to [facility] Kimball; direct number provided if additional information is needed;
--- NOTE | 2019-06-21 11:20 | NUR ---
pt discharged with [facility] transport; purse, cell phone, shoes and cane sent with pt; pt remains of o2 at 6L; deep suctioning performed per RT prior to release; platelet continue to infusing slowly without no s/s of reaction noted;
== END 2019-06-21 11:20 | disposition short-term general hospital (02) | DRG 813 ==
LOC: ED 16:21 → ED-I 18:30 → ED 18:46 → ICU 18:47
PROVIDERS: Family Medicine; Internal Medicine; ADMIT Internal Medicine; ATTEND Internal Medicine
PROC: 30233R1 Transfusion of Nonautologous Platelets into Peripheral Vein, Percutaneous Approach (ICD-10-PCS; principal; 2019-06-21)
PROC: 0T9B70Z Drainage of Bladder with Drainage Device, Via Natural or Artificial Opening (ICD-10-PCS; 2019-06-21)
DX: D69.3 Immune thrombocytopenic purpura (principal); N17.9 Acute kidney failure, unspecified; G93.49 Other encephalopathy; I50.22 Chronic systolic (congestive) heart failure; I42.9 Cardiomyopathy, unspecified; E87.4 Mixed disorder of acid-base balance; I11.0 Hypertensive heart disease with heart failure; K13.79 Other lesions of oral mucosa; R04.0 Epistaxis; F17.210 Nicotine dependence, cigarettes, uncomplicated; Z85.41 Personal history of malignant neoplasm of cervix uteri
CPT/HCPCS: J1561; P9034

== ENCOUNTER 2019-08-03 | Emergency (ER) | payer OTHER ==
[2019-08-03 22:27] LABS: HEMATOCRIT 35.2 % (37.0-47.0); HEMOGLOBIN 11.5 g/dl (12.0-16.0); MEAN CORPUSCULAR HGB 25.7 pG CALC (26.0-32.0); MEAN CORPUSCULAR HGB CONC 32.7 g/L CALC (32.0-36.0); RED BLOOD COUNT 4.47 mill/uL (4.20-5.60); RED CELL DISTRI WIDTH 19.1 % (11.5-15.5)
[2019-08-03 22:29] LABS: MEAN CELL VOLUME 78.7 fL CALC (80.0-100.0)
[2019-08-03 22:30] LABS: IMMATURE GRANULOCYTES 1.1 % (0.0-5.0); NEUT# 6.7 thou/uL (2.00-7.15)
[2019-08-03 22:41] LABS: ALBUMIN 3.7 g/dL (3.2-5.0); ALKALINE PHOSPHATASE 101 u/l (38-126); BILIRUBIN, TOTAL 0.8 mg/dL (0.0-1.4); BUN 11 mg/dL (7-17); CHLORIDE 106 mmol/l (95-108); MAGNESIUM 1.4 mg/dL (1.6-2.3); SODIUM 139 mmol/l (137-146)
[2019-08-03 22:42] LABS: ANION GAP 16 (6-22 (CALC)); BUN/CREATININE RATIO 8 (12-20 (CALC)); CARBON DIOXIDE 21 mmol/l (22-30); CREATININE 1.4 mg/dL (0.5-1.0); GFR 38 ML/MIN (>=60 (CALC)); GFR FOR AFR.AMER. 46 ML/MIN (>=60 (CALC)); POTASSIUM 3.9 mmol/l (3.5-5.1); SGOT/AST 51 u/l (14-36); TOTAL PROTEIN 8.2 g/dL (6.3-8.2)
[2019-08-03 22:53] LABS: MYOGLOBIN 28 ng/mL (0 - 62)
[2019-08-03 23:11] LABS: TSH, 3RD GENERATION 0.19 uIU/mL (0.47 - 4.68)
== END 2019-08-04 00:36 | disposition home or self-care (01) ==
PROVIDERS: Family Medicine
DX: D69.3 Immune thrombocytopenic purpura (principal); I11.0 Hypertensive heart disease with heart failure; I50.9 Heart failure, unspecified; F17.210 Nicotine dependence, cigarettes, uncomplicated

== ENCOUNTER 2019-08-06 18:09 | Inpatient (IN) | payer OTHER ==
[~2019-08-06] VITALS: Ht 162.6 cm; Wt 73.5 kg
[2019-08-06 19:30] LABS: ALBUMIN 3.7 g/dL (3.2-5.0); BILIRUBIN, TOTAL 0.9 mg/dL (0.0-1.4); CREATININE 1.4 mg/dL (0.5-1.0); POTASSIUM 3.7 mmol/l (3.5-5.1); TOTAL PROTEIN 7.9 g/dL (6.3-8.2)
[2019-08-06 19:33] LABS: HEMATOCRIT 37.4 % (37.0-47.0); HEMOGLOBIN 12.3 g/dl (12.0-16.0); MEAN CELL VOLUME 77.4 fL CALC (80.0-100.0); MEAN CORPUSCULAR HGB 25.5 pG CALC (26.0-32.0); MEAN CORPUSCULAR HGB CONC 32.9 g/L CALC (32.0-36.0); RED BLOOD COUNT 4.83 mill/uL (4.20-5.60); RED CELL DISTRI WIDTH 18.6 % (11.5-15.5)
[2019-08-06 19:34] LABS: IMMATURE GRANULOCYTES 0.5 % (0.0-5.0); NEUT# 12.11 thou/uL (2.00-7.15)
[2019-08-06 21:50] LABS: URINE BLOOD DIPSTICK SMALL (NEGATIVE); URINE COLOR YELLOW; URINE GLUCOSE - DIPSTICK NEGATIVE (NEGATIVE); URINE KETONE NEGATIVE (NEGATIVE); URINE NITRITE - DIPSTICK NEGATIVE (Negative); URINE PH 6.5 (4.5-8.0); URINE PROTEIN - DIPSTICK 100 mg/dL (NEG-TRACE); URINE SPECIFIC GRAVITY 1.015; URINE UROBILINOGEN - DIPSTICK 0.2 E.U./dL (0.2)
[2019-08-06 21:52] LABS: URINE BILIRUBIN - DIPSTICK SMALL (NEGATIVE); URINE LEUK ESTERASE SMALL (NEGATIVE)
[2019-08-06 22:01] LABS: URINE BACTERIA MANY hpf; URINE SQUAMOUS EPITHELIAL CELL FEW EPI/hpf (0-FEW)
[2019-08-06 22:03] LABS: COCAINE POSITIVE (NEGATIVE); METHADONE NEGATIVE (NEGATIVE); TETRAHYDROCANNABIONOL NEGATIVE (NEGATIVE)
[2019-08-06 22:04] LABS: BARBITURATES NEGATIVE (NEGATIVE); OXCYCODONE NEGATIVE (NEGATIVE); TRICYLIC ANTIDEPRESSANTS NEGATIVE (NEGATIVE)
[2019-08-07 01:40] VITALS: BP 158/92
[2019-08-07 03:43] VITALS: BP 156/110
[2019-08-07 05:42] LABS: HEMOGLOBIN 12.6 g/dl (12.0-16.0); IMMATURE GRANULOCYTES 0.4 % (0.0-5.0); MEAN CELL VOLUME 77.7 fL CALC (80.0-100.0); MEAN CORPUSCULAR HGB 25.1 pG CALC (26.0-32.0); MEAN CORPUSCULAR HGB CONC 32.3 g/L CALC (32.0-36.0); NEUT# 11.66 thou/uL (2.00-7.15); RED BLOOD COUNT 5.02 mill/uL (4.20-5.60); RED CELL DISTRI WIDTH 18.6 % (11.5-15.5)
[2019-08-07 05:57] LABS: CREATININE 1.7 mg/dL (0.5-1.0); POTASSIUM 3.6 mmol/l (3.5-5.1)
[2019-08-07 08:40] VITALS: BP 131/66
[2019-08-07 15:37] VITALS: BP 142/92
[2019-08-07 19:00] VITALS: BP 142/98
[2019-08-08 04:15] VITALS: BP 173/94
[2019-08-08 04:16] LABS: MEAN CELL VOLUME 77.2 fL CALC (80.0-100.0); MEAN CORPUSCULAR HGB 25.5 pG CALC (26.0-32.0); RED BLOOD COUNT 3.81 mill/uL (4.20-5.60); RED CELL DISTRI WIDTH 18.4 % (11.5-15.5)
[2019-08-08 04:32] LABS: HEMATOCRIT 29.4 % (37.0-47.0); HEMOGLOBIN 9.7 g/dl (12.0-16.0)
[2019-08-08 04:42] LABS: ALBUMIN 2.7 g/dL (3.2-5.0); BILIRUBIN, TOTAL 0.8 mg/dL (0.0-1.4); CREATININE 1.5 mg/dL (0.5-1.0); POTASSIUM 3.5 mmol/l (3.5-5.1); TOTAL PROTEIN 6.3 g/dL (6.3-8.2)
[2019-08-08 04:43] VITALS: BP 173/94
[2019-08-08 05:59] VITALS: BP 156/93
[2019-08-08 08:10] VITALS: BP 159/83
[2019-08-08 15:19] VITALS: BP 164/90
[2019-08-08 19:16] VITALS: BP 151/87
[2019-08-09 04:00] VITALS: BP 140/78
[2019-08-09 04:59] LABS: HEMATOCRIT 27.2 % (37.0-47.0); HEMOGLOBIN 8.8 g/dl (12.0-16.0); MEAN CELL VOLUME 77.9 fL CALC (80.0-100.0); MEAN CORPUSCULAR HGB 25.2 pG CALC (26.0-32.0); MEAN CORPUSCULAR HGB CONC 32.4 g/L CALC (32.0-36.0); RED BLOOD COUNT 3.49 mill/uL (4.20-5.60); RED CELL DISTRI WIDTH 17.9 % (11.5-15.5)
[2019-08-09 05:21] LABS: CREATININE 1.2 mg/dL (0.5-1.0); MAGNESIUM 1.2 mg/dL (1.6-2.3); POTASSIUM 3.3 mmol/l (3.5-5.1)
[2019-08-09 07:58] VITALS: BP 146/95
[2019-08-09 15:22] VITALS: BP 155/101
[2019-08-09 16:03] VITALS: BP 141/87
[2019-08-09 19:10] VITALS: BP 179/89
[2019-08-10 03:58] VITALS: BP 110/53
[2019-08-10 05:23] LABS: HEMATOCRIT 31.3 % (37.0-47.0); HEMOGLOBIN 10.4 g/dl (12.0-16.0); MEAN CELL VOLUME 76.5 fL CALC (80.0-100.0); MEAN CORPUSCULAR HGB 25.4 pG CALC (26.0-32.0); MEAN CORPUSCULAR HGB CONC 33.2 g/L CALC (32.0-36.0); RED BLOOD COUNT 4.09 mill/uL (4.20-5.60); RED CELL DISTRI WIDTH 17.8 % (11.5-15.5)
[2019-08-10 06:00] LABS: CREATININE 1.2 mg/dL (0.5-1.0); POTASSIUM 3.9 mmol/l (3.5-5.1)
[2019-08-10 06:02] LABS: MAGNESIUM 2.2 mg/dL (1.6-2.3)
[2019-08-10 08:00] VITALS: BP 164/112
[2019-08-10 17:12] VITALS: BP 150/88
[2019-08-10 19:04] VITALS: BP 181/91
[2019-08-10 23:19] VITALS: BP 180/95
[2019-08-11 00:19] VITALS: BP 168/91
[2019-08-11 04:47] VITALS: BP 179/92
[2019-08-11 05:27] LABS: HEMATOCRIT 27.9 % (37.0-47.0); HEMOGLOBIN 9.3 g/dl (12.0-16.0); MEAN CORPUSCULAR HGB 25.3 pG CALC (26.0-32.0); MEAN CORPUSCULAR HGB CONC 33.3 g/L CALC (32.0-36.0); RED BLOOD COUNT 3.67 mill/uL (4.20-5.60); RED CELL DISTRI WIDTH 17.4 % (11.5-15.5)
[2019-08-11 05:40] LABS: CREATININE 1.2 mg/dL (0.5-1.0); MAGNESIUM 1.8 mg/dL (1.6-2.3); POTASSIUM 3.7 mmol/l (3.5-5.1)
[2019-08-11 08:45] VITALS: BP 180/96
[2019-08-11 14:50] VITALS: BP 174/94
[2019-08-11 19:14] VITALS: BP 139/100
[2019-08-12 00:18] VITALS: BP 160/97
[2019-08-12 03:39] VITALS: BP 163/89
[2019-08-12 06:07] LABS: HEMATOCRIT 29.1 % (37.0-47.0); HEMOGLOBIN 10.2 g/dl (12.0-16.0); MEAN CELL VOLUME 73.1 fL CALC (80.0-100.0); MEAN CORPUSCULAR HGB 25.6 pG CALC (26.0-32.0); MEAN CORPUSCULAR HGB CONC 35.1 g/L CALC (32.0-36.0); RED BLOOD COUNT 3.98 mill/uL (4.20-5.60); RED CELL DISTRI WIDTH 17.7 % (11.5-15.5)
[2019-08-12 06:10] LABS: CREATININE 1.4 mg/dL (0.5-1.0); MAGNESIUM 1.4 mg/dL (1.6-2.3); POTASSIUM 3.5 mmol/l (3.5-5.1)
[2019-08-12 08:30] VITALS: BP 150/100
[2019-08-12 16:15] VITALS: BP 179/103
[2019-08-12 20:00] VITALS: BP 173/97
[2019-08-13 04:00] VITALS: BP 164/89
[2019-08-13 05:27] LABS: HEMATOCRIT 33.9 % (37.0-47.0); HEMOGLOBIN 11.5 g/dl (12.0-16.0); MEAN CELL VOLUME 74.3 fL CALC (80.0-100.0); MEAN CORPUSCULAR HGB 25.2 pG CALC (26.0-32.0); MEAN CORPUSCULAR HGB CONC 33.9 g/L CALC (32.0-36.0); RED BLOOD COUNT 4.56 mill/uL (4.20-5.60); RED CELL DISTRI WIDTH 17.6 % (11.5-15.5)
[2019-08-13 05:35] LABS: CREATININE 1.5 mg/dL (0.5-1.0); POTASSIUM 3.3 mmol/l (3.5-5.1)
[2019-08-13 08:30] VITALS: BP 148/82
[2019-08-13] MEDS ORDERED: METRONIDAZOL500 MG PO (16:39)
[2019-08-13] MEDS ORDERED: VANCOMYCIN HCL125 M1 PO (16:39)
[2019-08-13 16:46] VITALS: BP 119/78
== END 2019-08-13 17:10 | disposition home or self-care (01) | DRG 372 ==
LOC: ED 18:09 → ED-I 22:37 → ED 23:12 → MS2 23:12
PROVIDERS: Emergency Medicine; Nurse Practitioner Family; ADMIT Internal Medicine; ATTEND Internal Medicine
DX: A04.72 Enterocolitis due to Clostridium difficile, not specified as recurrent (principal); N39.0 Urinary tract infection, site not specified; D69.3 Immune thrombocytopenic purpura; I13.0 Hypertensive heart and chronic kidney disease with heart failure and stage 1 through stage 4 chronic kidney disease, or unspecified chronic kidney disease; I42.9 Cardiomyopathy, unspecified; N18.3 Chronic kidney disease, stage 3 (moderate); I50.9 Heart failure, unspecified; E87.6 Hypokalemia; E83.42 Hypomagnesemia; K57.30 Diverticulosis of large intestine without perforation or abscess without bleeding; N28.1 Cyst of kidney, acquired; D73.4 Cyst of spleen; F17.200 Nicotine dependence, unspecified, uncomplicated; Z79.891 Long term (current) use of opiate analgesic
CPT/HCPCS: J3475

== ENCOUNTER 2019-08-16 | Emergency (ER) | payer OTHER ==
[~2019-08-16] MED LIST changes: +METRONIDAZOL500 MG PO; +VANCOMYCIN HCL125 M1 PO
[2019-08-16 08:22] LABS: HEMATOCRIT 31.6 % (37.0-47.0); HEMOGLOBIN 10.5 g/dl (12.0-16.0); IMMATURE GRANULOCYTES 0.7 % (0.0-5.0); MEAN CELL VOLUME 74.7 fL CALC (80.0-100.0); MEAN CORPUSCULAR HGB 24.8 pG CALC (26.0-32.0); MEAN CORPUSCULAR HGB CONC 33.2 g/L CALC (32.0-36.0); NEUT# 8.1 thou/uL (2.00-7.15); RED BLOOD COUNT 4.23 mill/uL (4.20-5.60); RED CELL DISTRI WIDTH 17.2 % (11.5-15.5)
[2019-08-16 08:38] LABS: ALBUMIN 2.8 g/dL (3.2-5.0); BILIRUBIN, TOTAL 0.7 mg/dL (0.0-1.4); CREATININE 1.7 mg/dL (0.5-1.0); POTASSIUM 3.2 mmol/l (3.5-5.1)
[2019-08-16 10:32] LABS: INTERNATIONAL NORMALIZED RATIO 1.2 RATIO (0.7-1.3); PROTHROMBIN TIME 12.8 SECONDS (9.0-12.5)
== END 2019-08-16 12:23 | disposition short-term general hospital (02) ==
PROVIDERS: Family Medicine
DX: I21.4 Non-ST elevation (NSTEMI) myocardial infarction (principal); I11.0 Hypertensive heart disease with heart failure; I50.9 Heart failure, unspecified
CPT/HCPCS: J1644

== ENCOUNTER 2019-08-23 14:21 | Inpatient (IN) | payer OTHER ==
[~2019-08-23] VITALS: Ht 162.6 cm; Wt 76.8 kg
[2019-08-23 15:04] LABS: HEMATOCRIT 33.1 % (37.0-47.0); HEMOGLOBIN 11.2 g/dl (12.0-16.0); IMMATURE GRANULOCYTES 2.2 % (0.0-5.0); MEAN CELL VOLUME 72.3 fL CALC (80.0-100.0); MEAN CORPUSCULAR HGB 24.5 pG CALC (26.0-32.0); MEAN CORPUSCULAR HGB CONC 33.8 g/L CALC (32.0-36.0); NEUT# 18.69 thou/uL (2.00-7.15); RED BLOOD COUNT 4.58 mill/uL (4.20-5.60)
[2019-08-23 15:19] LABS: ALBUMIN 2.9 g/dL (3.2-5.0); BILIRUBIN, TOTAL 0.8 mg/dL (0.0-1.4); CREATININE 1.5 mg/dL (0.5-1.0); POTASSIUM 3.7 mmol/l (3.5-5.1)
[2019-08-23 16:38] LABS: URINE BLOOD DIPSTICK SMALL (NEGATIVE); URINE COLOR YELLOW; URINE GLUCOSE - DIPSTICK NEGATIVE (NEGATIVE); URINE KETONE TRACE mg/dL (NEGATIVE); URINE NITRITE - DIPSTICK NEGATIVE (Negative); URINE PROTEIN - DIPSTICK 100 mg/dL (NEG-TRACE); URINE SPECIFIC GRAVITY 1.015; URINE UROBILINOGEN - DIPSTICK 0.2 E.U./dL (0.2)
[2019-08-23 16:40] LABS: URINE BILIRUBIN - DIPSTICK NEGATIVE (NEGATIVE); URINE LEUK ESTERASE SMALL (NEGATIVE); URINE SQUAMOUS EPITHELIAL CELL FEW EPI/hpf (0-FEW)
[2019-08-23 20:20] VITALS: BP 183/102
[2019-08-23 22:08] VITALS: BP 174/92
[2019-08-23 23:53] VITALS: BP 147/84
[2019-08-24] VITALS (7 sets, daily range): BP systolic 121–164; BP diastolic 74–107
[2019-08-24] MEDS ORDERED: COREG6.25 MG PO (11:13)
[2019-08-24] MEDS ORDERED: NIFEDIPINE60 MG PO (11:14)
[2019-08-24] MEDS ORDERED: PREDNISONE20 MG PO (11:14)
[2019-08-24] MEDS ORDERED: PEPCID20 MG PO (11:15)
[2019-08-24] MEDS ORDERED: PROMACTA50 MG PO (11:15)
[2019-08-24] MEDS ORDERED: SEROQUEL25 MG PO (11:16)
[2019-08-24] MEDS ORDERED: DANAZOL200 MG PO (11:16)
[2019-08-24 14:35] LABS: HEMATOCRIT 26.7 % (37.0-47.0); MEAN CELL VOLUME 72.6 fL CALC (80.0-100.0); MEAN CORPUSCULAR HGB 24.5 pG CALC (26.0-32.0); MEAN CORPUSCULAR HGB CONC 33.7 g/L CALC (32.0-36.0); NEUT# 14.98 thou/uL (2.00-7.15); RED BLOOD COUNT 3.68 mill/uL (4.20-5.60); RED CELL DISTRI WIDTH 17.9 % (11.5-15.5)
[2019-08-24 14:53] LABS: CREATININE 1.6 mg/dL (0.5-1.0); MAGNESIUM 1.3 mg/dL (1.6-2.3)
[2019-08-25 04:04] VITALS: BP 130/83
[2019-08-25 05:23] LABS: HEMATOCRIT 23.9 % (37.0-47.0); IMMATURE GRANULOCYTES 4.5 % (0.0-5.0); MEAN CELL VOLUME 70.9 fL CALC (80.0-100.0); MEAN CORPUSCULAR HGB 23.7 pG CALC (26.0-32.0); MEAN CORPUSCULAR HGB CONC 33.5 g/L CALC (32.0-36.0); NEUT# 11.13 thou/uL (2.00-7.15); RED BLOOD COUNT 3.37 mill/uL (4.20-5.60); RED CELL DISTRI WIDTH 18.3 % (11.5-15.5)
[2019-08-25 05:31] LABS: CREATININE 1.7 mg/dL (0.5-1.0); POTASSIUM 3.6 mmol/l (3.5-5.1)
[2019-08-25 05:34] LABS: MAGNESIUM 2.7 mg/dL (1.6-2.3)
[2019-08-25 08:43] VITALS: BP 177/80
[2019-08-25 11:15] VITALS: BP 137/89
[2019-08-25 15:55] VITALS: BP 128/69
[2019-08-25] MEDS ORDERED: DEXAMETHASON2 MG PO (16:10)
[2019-08-25 19:06] VITALS: BP 114/66
[2019-08-25 23:53] VITALS: BP 111/59
[2019-08-26 04:05] VITALS: BP 127/73
[2019-08-26 07:41] VITALS: BP 134/75
[2019-08-26 08:47] LABS: CREATININE 1.6 mg/dL (0.5-1.0); MAGNESIUM 2.1 mg/dL (1.6-2.3); POTASSIUM 3.7 mmol/l (3.5-5.1)
[2019-08-26 08:48] LABS: HEMATOCRIT 24.8 % (37.0-47.0); HEMOGLOBIN 8.2 g/dl (12.0-16.0); IMMATURE GRANULOCYTES 5.5 % (0.0-5.0); MEAN CELL VOLUME 73.6 fL CALC (80.0-100.0); MEAN CORPUSCULAR HGB 24.3 pG CALC (26.0-32.0); MEAN CORPUSCULAR HGB CONC 33.1 g/L CALC (32.0-36.0); RED BLOOD COUNT 3.37 mill/uL (4.20-5.60); RED CELL DISTRI WIDTH 18.4 % (11.5-15.5)
[2019-08-26 09:01] LABS: PLATELET COUNT 141 thou/uL (130-400)
[2019-08-26 09:02] LABS: MANUAL DIFFERENTIAL YES
[2019-08-26 09:06] LABS: ANISOCYTOSIS FEW; BAND 3 % (0-8); PLATELET ESTIMATE NORMAL; POIKILOCYTOSIS FEW
[2019-08-26 09:07] LABS: ACANTHOCYTES FEW; SCHISTOCYTES FEW; TARGET CELLS FEW
[2019-08-26 09:08] LABS: TEAR DROP CELLS FEW
[2019-08-26 11:00] VITALS: BP 132/70
[2019-08-26 14:48] VITALS: BP 132/81
[2019-08-26 20:00] VITALS: BP 145/81
[2019-08-27] VITALS (7 sets, daily range): BP systolic 134–181; BP diastolic 73–88
[2019-08-27 04:48] LABS: HEMATOCRIT 25.5 % (37.0-47.0); HEMOGLOBIN 8.6 g/dl (12.0-16.0); MEAN CELL VOLUME 73.3 fL CALC (80.0-100.0); MEAN CORPUSCULAR HGB 24.7 pG CALC (26.0-32.0); MEAN CORPUSCULAR HGB CONC 33.7 g/L CALC (32.0-36.0); RED BLOOD COUNT 3.48 mill/uL (4.20-5.60); RED CELL DISTRI WIDTH 18.3 % (11.5-15.5)
[2019-08-27 05:06] LABS: CREATININE 1.5 mg/dL (0.5-1.0); MAGNESIUM 1.7 mg/dL (1.6-2.3); POTASSIUM 3.3 mmol/l (3.5-5.1)
[2019-08-28 04:43] VITALS: BP 130/78
[2019-08-28 04:46] LABS: MEAN CELL VOLUME 73.6 fL CALC (80.0-100.0); MEAN CORPUSCULAR HGB 24.5 pG CALC (26.0-32.0); MEAN CORPUSCULAR HGB CONC 33.3 g/L CALC (32.0-36.0); RED BLOOD COUNT 3.67 mill/uL (4.20-5.60); RED CELL DISTRI WIDTH 18.6 % (11.5-15.5)
[2019-08-28 05:06] LABS: CREATININE 1.6 mg/dL (0.5-1.0); MAGNESIUM 1.5 mg/dL (1.6-2.3); POTASSIUM 3.4 mmol/l (3.5-5.1)
[2019-08-28 11:17] VITALS: BP 155/92
[2019-08-28 15:18] VITALS: BP 146/86
[2019-08-28 18:35] VITALS: BP 135/82
[2019-08-28 23:22] VITALS: BP 136/84
[2019-08-29 03:28] VITALS: BP 149/82
[2019-08-29 07:30] VITALS: BP 132/62
[2019-08-29 10:52] LABS: HEMATOCRIT 27.6 % (37.0-47.0); MEAN CELL VOLUME 74.4 fL CALC (80.0-100.0); MEAN CORPUSCULAR HGB 24.3 pG CALC (26.0-32.0); MEAN CORPUSCULAR HGB CONC 32.6 g/L CALC (32.0-36.0); RED BLOOD COUNT 3.71 mill/uL (4.20-5.60); RED CELL DISTRI WIDTH 18.7 % (11.5-15.5)
[2019-08-29 11:26] LABS: CREATININE 1.7 mg/dL (0.5-1.0); MAGNESIUM 1.5 mg/dL (1.6-2.3); POTASSIUM 3.6 mmol/l (3.5-5.1)
[2019-08-29 11:31] VITALS: BP 135/87
[2019-08-29 15:24] VITALS: BP 135/88
[2019-08-29 19:16] VITALS: BP 147/84
[2019-08-30 00:04] VITALS: BP 139/80
[2019-08-30 04:05] VITALS: BP 121/71
[2019-08-30 08:06] VITALS: BP 135/90
[2019-08-30 10:56] VITALS: BP 141/83
[2019-08-30 13:36] LABS: CREATININE 1.7 mg/dL (0.5-1.0); MAGNESIUM 1.5 mg/dL (1.6-2.3); POTASSIUM 4.1 mmol/l (3.5-5.1)
[2019-08-30 15:05] VITALS: BP 122/76
[2019-08-30 19:06] VITALS: BP 136/82
[2019-08-31 04:20] VITALS: BP 148/84
[2019-08-31 06:44] LABS: HEMATOCRIT 24.7 % (37.0-47.0); HEMOGLOBIN 8.2 g/dl (12.0-16.0); IMMATURE GRANULOCYTES 5.7 % (0.0-5.0); MEAN CELL VOLUME 72.9 fL CALC (80.0-100.0); MEAN CORPUSCULAR HGB 24.2 pG CALC (26.0-32.0); MEAN CORPUSCULAR HGB CONC 33.2 g/L CALC (32.0-36.0); NEUT# 15.21 thou/uL (2.00-7.15); RED BLOOD COUNT 3.39 mill/uL (4.20-5.60); RED CELL DISTRI WIDTH 18.9 % (11.5-15.5)
[2019-08-31 07:16] LABS: CREATININE 1.8 mg/dL (0.5-1.0); MAGNESIUM 1.6 mg/dL (1.6-2.3); POTASSIUM 3.6 mmol/l (3.5-5.1)
[2019-08-31 10:30] VITALS: BP 120/72
[2019-08-31 16:25] VITALS: BP 137/83
[2019-08-31 18:50] VITALS: BP 135/70
[2019-09-01 03:35] VITALS: BP 149/82
[2019-09-01 06:14] LABS: HEMATOCRIT 25.1 % (37.0-47.0); MEAN CELL VOLUME 74.7 fL CALC (80.0-100.0); MEAN CORPUSCULAR HGB 23.8 pG CALC (26.0-32.0); MEAN CORPUSCULAR HGB CONC 31.9 g/L CALC (32.0-36.0); NEUT# 11.42 thou/uL (2.00-7.15); RED BLOOD COUNT 3.36 mill/uL (4.20-5.60); RED CELL DISTRI WIDTH 19.3 % (11.5-15.5)
[2019-09-01 06:21] LABS: IMMATURE GRANULOCYTES 6.1 % (0.0-5.0)
[2019-09-01 06:41] LABS: CREATININE 1.7 mg/dL (0.5-1.0); POTASSIUM 4.2 mmol/l (3.5-5.1)
[2019-09-01 16:12] VITALS: BP 128/74
[2019-09-01 18:55] VITALS: BP 147/73
[2019-09-02 04:03] VITALS: BP 139/77
[2019-09-02 08:50] VITALS: BP 139/78
[2019-09-02 09:53] VITALS: BP 139/78
[2019-09-02] MEDS ORDERED: FLORASTOR250 M1 PO (13:49)
[2019-09-02] MEDS ORDERED: LOMOTIL2.5 MG PO (13:49)
== END 2019-09-02 15:28 | disposition home health service (06) | DRG 690 ==
LOC: ED 14:21 → ED-I 17:25 → ED 17:46 → MS2 17:47
PROVIDERS: Family Medicine; Nurse Practitioner Family; ADMIT Internal Medicine; ATTEND Internal Medicine
DX: N39.0 Urinary tract infection, site not specified (principal); I42.9 Cardiomyopathy, unspecified; I13.0 Hypertensive heart and chronic kidney disease with heart failure and stage 1 through stage 4 chronic kidney disease, or unspecified chronic kidney disease; D69.3 Immune thrombocytopenic purpura; I16.0 Hypertensive urgency; I50.9 Heart failure, unspecified; N18.3 Chronic kidney disease, stage 3 (moderate); R19.7 Diarrhea, unspecified; E87.6 Hypokalemia; E83.42 Hypomagnesemia; F17.200 Nicotine dependence, unspecified, uncomplicated; M19.012 Primary osteoarthritis, left shoulder; B96.89 Other specified bacterial agents as the cause of diseases classified elsewhere; R07.9 Chest pain, unspecified; Z86.19 Personal history of other infectious and parasitic diseases; Z79.52 Long term (current) use of systemic steroids
CPT/HCPCS: J3475; Q9967

== ENCOUNTER 2019-09-10 | Observation (INO) | payer OTHER ==
--- NOTE | 2019-09-09 22:00 | NUR ---
BY WC TO ROOM
--- NOTE | 2019-09-09 22:01 | NUR ---
PT. WITH C/O ABD. PAIN CENTENO AND INTERMITTENT CP STARTING APPROX. 2 DAYS AGO. SKIN WARM AND DRY TO TOUCH, COLOR WNL, RESP. EVEN AND UNLABORED.
--- NOTE | 2019-09-09 22:59 | NUR ---
NITRO PASTE APPLIED PER MD ORDER.
[2019-09-09 23:07] LABS: IMMATURE GRANULOCYTES 1.3 % (0.0-5.0); MEAN CELL VOLUME 74.3 fL CALC (80.0-100.0); MEAN CORPUSCULAR HGB 24.2 pG CALC (26.0-32.0); MEAN CORPUSCULAR HGB CONC 32.6 g/L CALC (32.0-36.0); NEUT# 4.55 thou/uL (2.00-7.15); RED BLOOD COUNT 4.83 mill/uL (4.20-5.60); RED CELL DISTRI WIDTH 18.9 % (11.5-15.5)
[2019-09-09 23:08] LABS: HEMATOCRIT 35.9 % (37.0-47.0); HEMOGLOBIN 11.7 g/dl (12.0-16.0)
[2019-09-09 23:19] LABS: ALKALINE PHOSPHATASE 111 u/l (38-126); AMYLASE 78 u/l (30-110); ANION GAP 11 (6-22 (CALC)); BILIRUBIN, TOTAL 0.7 mg/dL (0.0-1.4); BUN 7 mg/dL (7-17); BUN/CREATININE RATIO 3 (12-20 (CALC)); CARBON DIOXIDE 23 mmol/l (22-30); CHLORIDE 111 mmol/l (95-108); CREATININE 2.1 mg/dL (0.5-1.0); GFR 24 ML/MIN (>=60 (CALC)); GFR FOR AFR.AMER. 29 ML/MIN (>=60 (CALC)); LIPASE 40 u/l (23-300); POTASSIUM 3.6 mmol/l (3.5-5.1); SGOT/AST 18 u/l (14-36); SODIUM 141 mmol/l (137-146); TOTAL PROTEIN 7.9 g/dL (6.3-8.2)
[2019-09-09 23:20] LABS: ALBUMIN 3.7 g/dL (3.2-5.0)
[2019-09-09 23:22] LABS: PROTHROMBIN TIME 10.7 SECONDS (9.0-12.5)
[2019-09-09 23:32] LABS: MYOGLOBIN 32 ng/mL (0 - 62)
--- NOTE | 2019-09-09 23:59 | NUR ---
PT. RESTING ON STRETCHER, AWAITING ADMISSION TO FLOOR, NO ACUTE DISTRESS NOTED. ASSESSMENT UNCHGED.
[~2019-09-10] MED LIST changes: +COREG6.25 MG PO; +DANAZOL200 MG PO; +FLORASTOR250 M1 PO; +LOMOTIL2.5 MG PO; +NIFEDIPINE60 MG PO; +PEPCID20 MG PO; +PROMACTA50 MG PO; +SEROQUEL25 MG PO
[2019-09-10 00:21] LABS: URINE BILIRUBIN - DIPSTICK NEGATIVE (NEGATIVE); URINE BLOOD DIPSTICK TRACE-INTACT (NEGATIVE); URINE COLOR YELLOW; URINE GLUCOSE - DIPSTICK NEGATIVE (NEGATIVE); URINE KETONE NEGATIVE (NEGATIVE); URINE LEUK ESTERASE NEGATIVE (NEGATIVE); URINE NITRITE - DIPSTICK NEGATIVE (Negative); URINE PH 5.5 (4.5-8.0); URINE PROTEIN - DIPSTICK 30 mg/dL (NEG-TRACE); URINE SPECIFIC GRAVITY >=1.030; URINE UROBILINOGEN - DIPSTICK 0.2 E.U./dL (0.2)
[2019-09-10 00:22] LABS: COCAINE POSITIVE (NEGATIVE); METHADONE NEGATIVE (NEGATIVE); TETRAHYDROCANNABIONOL NEGATIVE (NEGATIVE)
[2019-09-10 00:23] LABS: BARBITURATES NEGATIVE (NEGATIVE); OXCYCODONE NEGATIVE (NEGATIVE); TRICYLIC ANTIDEPRESSANTS NEGATIVE (NEGATIVE)
[2019-09-10 00:26] LABS: URINE BACTERIA MODERATE hpf; URINE EPITHELIAL CELLS MANY EPI/hpf (0-FEW)
[2019-09-10 00:27] LABS: URINE MUCUS FEW hpf (NONE-FEW); URINE YEAST FEW hpf
--- NOTE | 2019-09-10 00:59 | NUR ---
AMBULATING TO BR GAIT SLOW AND STEADY, ASSESSMENT UNCHANGED.
--- NOTE | 2019-09-10 02:00 | NUR ---
PT. TAKE SIPS OF JUICE, NO C/O CP OR SOB OFFERED.
--- NOTE | 2019-09-10 02:18 | NUR ---
PO ASA GIVEN PER MD ORDER.
--- NOTE | 2019-09-10 03:18 | NUR ---
RESTING QUIETLY ON STRETCHER, NO C/O AT THIS TIME.
--- NOTE | 2019-09-10 03:43 | NUR ---
Admission Note Report Given to: GELY RUIZ Transported by: Wheelchair X Stretcher Transported with: X Nurse Transporter X Patent IV O2 X Exploration Manager Location: X ICU MS2
--- NOTE | 2019-09-10 03:45 | NUR ---
PT. TAKEN TO ICU VIA STRETCHER, NO C/O AT THIS TIME.
--- NOTE | 2019-09-10 04:05 | NUR ---
RECEIVED INTO ROOM ICU 6 FROM ER VIA STRETCHER. PATIENT AMBULATED FROM STRETCHER TO BED. RESP NON-LABORED, LUNGS CLEAR. NO C/O CHEST PAIN AT THIS TIME. SHIFT ASSESSMENT COMPLETED. ORIENTED TO SURROUNDINGS. REINFORCED USE OF CALL STAFFORD AND BED CONTROLS. DISCUSSED PLAN OF CARE. DENIES NEEDS AT THIS TIME. CALL STAFFORD IN REACH.
[2019-09-10 05:00] VITALS: BP 137/80
[2019-09-10 08:00] VITALS: BP 140/83
--- NOTE | 2019-09-10 08:00 | NUR ---
PT SEEN RESTING IN THE BED, NO ACUTE DISTRESS. PT DOES SAY THAT SHE HAS SOME GENERALIZED DISCOMFORT, BUT NOT CHEST PAIN OR SHORTNESS OF BREATH.
[2019-09-10 10:15] VITALS: BP 176/106
--- NOTE | 2019-09-10 12:00 | NUR ---
PT PROVIDED TYLENOL FOR HEADACHE AND ALSO MED FOR ELEVATED BLOOD PRESSURE. PT REMAINS BEFORE, NO COMPLAINT OF CHEST PAIN OR OTHERWISE.
[2019-09-10 12:15] VITALS: BP 160/84
[2019-09-10] MEDS ORDERED: HYDRALAZINE50 MG PO (13:24)
--- NOTE | 2019-09-10 14:16 | NUR ---
PT HAS BEEN SEEN BY DR SALINAS AND HAS BEEN DISCHARGED TO HOME. PT LEAVES [facility] IN WHEELCHAIR, CONDITION STABLE, AFTER VERBALIZING UNDERSTANDING OF DC INSTRUCTIONS. PT TAKEN TO VEHICLE IN PARKING LOT. PT LEAVES IN STABLE CONDITION.
== END 2019-09-10 14:10 | disposition home or self-care (01) ==
PROVIDERS: Emergency Medicine; ADMIT Internal Medicine
DX: R07.9 Chest pain, unspecified (principal); I16.0 Hypertensive urgency; I13.0 Hypertensive heart and chronic kidney disease with heart failure and stage 1 through stage 4 chronic kidney disease, or unspecified chronic kidney disease; I50.9 Heart failure, unspecified; N18.4 Chronic kidney disease, stage 4 (severe); K52.9 Noninfective gastroenteritis and colitis, unspecified; D69.3 Immune thrombocytopenic purpura; I42.9 Cardiomyopathy, unspecified; F14.10 Cocaine abuse, uncomplicated; F17.200 Nicotine dependence, unspecified, uncomplicated; Z86.19 Personal history of other infectious and parasitic diseases

== ENCOUNTER 2019-09-21 | Emergency (ER) | payer OTHER ==
[~2019-09-21] MED LIST changes: +HYDRALAZINE50 MG PO
[2019-09-21 11:53] LABS: HEMATOCRIT 37.1 % (37.0-47.0); HEMOGLOBIN 12.1 g/dl (12.0-16.0); IMMATURE GRANULOCYTES 0.6 % (0.0-5.0); MEAN CELL VOLUME 71.8 fL CALC (80.0-100.0); MEAN CORPUSCULAR HGB 23.4 pG CALC (26.0-32.0); MEAN CORPUSCULAR HGB CONC 32.6 g/L CALC (32.0-36.0); NEUT# 5.2 thou/uL (2.00-7.15); RED BLOOD COUNT 5.17 mill/uL (4.20-5.60); RED CELL DISTRI WIDTH 17.5 % (11.5-15.5)
[2019-09-21 12:14] LABS: ACT PARTIAL THROMBO TIME 39.2 SECONDS (20.0-32.5); D-DIMER 2.21 mg/L (0.19-0.60); INTERNATIONAL NORMALIZED RATIO 1.1 RATIO (0.7-1.3); PROTHROMBIN TIME 11.8 SECONDS (9.0-12.5)
[2019-09-21 12:15] LABS: ALBUMIN 3.3 g/dL (3.2-5.0); BILIRUBIN, TOTAL 0.6 mg/dL (0.0-1.4); MAGNESIUM 1.8 mg/dL (1.6-2.3); TOTAL PROTEIN 7.2 g/dL (6.3-8.2)
[2019-09-21 12:16] LABS: CREATININE 4.2 mg/dL (0.5-1.0)
== END 2019-09-21 13:38 | disposition short-term general hospital (02) ==
PROVIDERS: Family Medicine
DX: I21.4 Non-ST elevation (NSTEMI) myocardial infarction (principal); N17.9 Acute kidney failure, unspecified; I11.0 Hypertensive heart disease with heart failure; I50.9 Heart failure, unspecified
CPT/HCPCS: J0131